=== PATIENT | female | born 1990 | race Caucasian/White ===

== ENCOUNTER → 2021-06-24 12:48 | Outpatient (CLI) | payer OTHER, SELFPAY ==
--- NOTE | 2021-06-24 13:10 | US_ITS ---
STUDY: FIRST TRIMESTER OBSTETRICAL ULTRASOUND REASON FOR EXAM: Female, 30 years old. TECHNIQUE: Transvaginal US was obtained to better visualized the ovaries. TECHNICAL QUALITY: Adequate. PRIOR ULTRASOUND: None. FINDINGS: There is visualization of a single gestational sac in a normal intrauterine position. The mean sac diameter (MSD) measures 33 mm, indicating an estimated gestational age (EGA) of 8 weeks, 3 days. The gestational sac shape is within normal limits. There is a visualized yolk sac. The yolk sac measures 4 mm. The placenta is non-visualized. Due to early gestation, the placenta is not seen. There is visualization of a live embryo. The crown-rump length (CRL) measures 19 mm, indicating an estimated gestational age (EGA) of 8 weeks, 2 days. There is demonstrated cardiac activity with a heart rate of 174 bpm. The estimated gestation age (EGA) by LMP is 8 weeks, 4 days. The estimated date of delivery (DIOGENES) by LMP is 7.15.22. The estimated gestation age (EGA) by US is 8 weeks, 2 days. The estimated date of delivery (DIOGENES) by US is 7.17.22. The uterus measures 8.7 x 7.3 cm. There is no demonstrated uterine fibroid. The cervix is closed. There are Nabothian cysts of the cervix. The right ovary measures 4.2 x 2.8 cm. Cyst measures 21 mm. There is no visualized right adnexal mass or complex lesion. The left ovary measures 3.2 x 2.6 cm. There is no left ovarian cyst. There is no visualized left adnexal mass or complex lesion. There is minimal fluid in the cul de sac. US/Transvaginal w/Preg US IMPRESSION: There is a single live intrauterine with a heart rate of 174 bpm. The estimated gestation age (EGA) by US is 8 weeks, 2 days. The estimated date of delivery (DIOGENES) by US is 7.17.22. There is free fluid in the pelvis. This can be physiologic. Electronically Signed: Asad Garcia MD at 15:52 EST , Service support ,
== END ==
PROVIDERS: Referring Provider Nurse Practitioner Women's Health; Visit Provider Nurse Practitioner Women's Health
DX: Z34.90 Encounter for supervision of normal pregnancy, unspecified, unspecified trimester (principal)
CPT/HCPCS: 36415; 76817; 84702; 86850; 86900; 86901

== ENCOUNTER → 2021-06-30 | Outpatient (CLI) | payer OTHER, SELFPAY ==
[2021-06-30 17:38] LABS: Amphetamine Urine VISTA NEGATIVE (<1000 ng/mL); Barbiturate Urine VISTA NEGATIVE (< 200 ng/mL); Benzodiazepine Urine VISTA NEGATIVE (< 200 ng/mL); Cocaine Urine VISTA NEGATIVE (< 300 ng/mL); Ecstacy Urine VISTA NEGATIVE (< 500 ng/mL); Methadone Urine VISTA NEGATIVE (< 300 ng/mL); PCP Urine VISTA NEGATIVE (< 25 ng/mL); THC Urine VISTA NEGATIVE (< 50 ng/mL); Vista UDS pH Range 5
[2021-07-03 00:06] LABS: Chlamydia By Nucleic Acid AMP Negative (Negative)
[2021-07-03 07:28] LABS: Gonococcus By Nucleic Acid AMP Negative (Negative)
[2021-07-07 14:20] LABS: HPV Reflexed? NOT INDICATED
== END | disposition home or self-care (01) ==
LOC: LABSPEC 16:25
PROVIDERS: Referring Provider Obstetrics & Gynecology; Visit Provider Obstetrics & Gynecology
DX: Z34.90 Encounter for supervision of normal pregnancy, unspecified, unspecified trimester (principal)
CPT/HCPCS: 80307; 87086; 87088; 87491; 87591; 88175; G0145

== ENCOUNTER → 2021-07-17 10:55 | Outpatient (CLI) | payer OTHER, SELFPAY ==
[2021-07-17 11:43] LABS: Absolute Lymphocyte Count 1.75 X10^3/uL (0.83-4.51); Absolute Neutrophil Count 6.1 X10^3/uL (2.0-7.7); Basophil# 0.02 X10^3/uL; Basophil% 0.2 % (0-1); Eosinophils% 1.2 % (0-5); Hematocrit 40.9 % (37-47); Hemoglobin 13.1 g/dL (12.0-15.0); Lymphocyte # 1.75 X10^3/ul (0.83-4.51); Mean Corpuscular Hgb 28.2 pg (27.0-32.0); Mean Platelet Vol. 9.6 fl (6.2-12.0); Monocyte# 0.32 X10^3/uL; Monocyte% 3.8 % (0-10); NRBC Flagged by Analyzer 0 % (0-5); Neutrophil # 6.11 X10^3/uL (2.7-7.7); Neutrophil % 73.2 % (47-70); Platelet Count 264 K/mm3 (150-450); RBC Distribution Width SD 38.3 fl (35.1-43.9); Red Blood Count 4.65 M/mm3 (4.2-5.4); White Blood Count 8.4 K/mm3 (4.4-11.0)
[2021-07-17 12:02] LABS: NATERA MAILED SPECIMEN
[2021-07-17 12:15] LABS: Glucose Challenge Gest 1H 50g 97 mg/dL (70-140)
[2021-07-17 13:12] LABS: HIV - WCH Non-Reactive (Nonreactive); Hepatitis B Surface Antigen Non-Reactive (Nonreactive); Hepatitis C Antibody Non-Reactive (Nonreactive); Rubella IgG Reactive (Nonreactive); Syphilis Antibodies Non-reactive
== END ==
PROVIDERS: Referring Provider Obstetrics & Gynecology; Visit Provider Obstetrics & Gynecology
DX: Z34.81 Encounter for supervision of other normal pregnancy, first trimester (principal)
CPT/HCPCS: 36415; 82950; 85025; 86703; 86762; 86780; 86803; 86850; 86900; 86901; 87340

== ENCOUNTER 2021-09-30 08:27 | Outpatient (CLI) | payer OTHER, SELFPAY ==
[2021-09-30 08:45] VITALS: BP 121/72; PULSE 107; RESP 16; TEMP 36.1; O2SAT 100
[2021-09-30] MEDS: Ondansetron 4 MG/2 ML Vial IV (08:51)
[2021-09-30] MEDS: 0.9% NaCl Peripheral Flush Adult/Peds IV ×2 (08:51→08:55)
[2021-09-30] MEDS: Dextrose 5%-Lactated Ringers 1,000 ML 999 ML IV (08:54)
[2021-09-30 10:16] VITALS: BP 119/64; PULSE 114; RESP 16; O2SAT 100
== END 2021-09-30 23:59 | disposition home or self-care (01) ==
PROVIDERS: Referring Provider Obstetrics & Gynecology; Visit Provider Obstetrics & Gynecology
DX: E86.0 Dehydration (principal)
CPT/HCPCS: 96374; 96361; A4216; J2405

== ENCOUNTER 2021-10-15 20:00 | Outpatient (CLI) | payer OTHER, SELFPAY ==
[2021-10-15 20:10] VITALS: BMI 35.2
[2021-10-15 20:21] VITALS: PULSE 89; O2SAT 98
[2021-10-15 20:23] VITALS: BP 121/60; PULSE 86
--- NOTE | 2021-10-15 20:44 | US_ITS ---
INDICATION: right sided flank pain EXAMINATION: Ultrasound US Kidney(s) complete (eg, kidneys and bladder) TECHNIQUE: Simmons scale and color doppler images were obtained of the kidneys. COMPARISON: None. FINDINGS: RIGHT KIDNEY: 10.4 cm in length. There is no hydronephrosis. No shadowing calculus, focal lesion or perinephric collection is demonstrated. LEFT KIDNEY: 12.0 cm in length. There is no hydronephrosis. No shadowing calculus, focal lesion or perinephric collection is demonstrated. Area measured in the right kidney highly suggestive of a prominent column of SANJIV; benign finding. URINARY BLADDER: Normal. US/Kidney and Bladder IMPRESSION: Normal exam. Electronically Signed: Kervin Talley DO at 0:03 EDT ,
--- NOTE | 2021-10-15 20:51 | OB.TRI.HP_ITS ---
HPI - General HPI Narrative * PAPA BRICENO, is a 31 @ 24 weeks 5 days who presents with persistent right flank pain. She was worked up by her pcp for possible UTI, however the final culture returned negative today. She points to her lower right flank and states that she has some pain with inhalation and also with laying on her right side. She denies seeing raghu blood in urine. She denies radiation to her right lower side. She denies history of kidney stones. She denies fevers, chills, nausea, vomiting, or diarrhea. No cough or SOB Maternal Data Information DIOGENES Calculator Estimated Delivery Date Method Current WG Current Estimate 01/30/22 LMP (Certain) 24w 5d PFSH PFSH Medical History Anxiety and depression COVID-19 affecting in first trimester COVID-19 vaccine series completed H/O abnormal cervical Papanicolaou smear Hx LEEP (loop electrosurgical excision procedure), cervix, Home Medications promethazine 12.5 mg tablet 12.5 mg PO Q6H PRN #60 tab 06/02/21 [Rx Last Taken Unknown] fluoxetine 10 mg capsule 10 mg PO DAILY 06/18/21 [History Last Taken Unknown] multivitamin no.47-iron fum 27 mg-folate no.1 1 mg-dha 300 mg capsule cap PO 06/18/21 [History Last Taken Unknown] omeprazole 20 mg capsule,delayed release 20 mg PO DAILY 30 Days #30 cap 09/03/21 [Rx Last Taken Unknown] Allergy/AdvReac Type Severity Reaction Status Date / Time No Known Allergies Allergy Verified 09/30/21 08:06 Family History Mother Breast cancer Father Cancer Melanoma Surgical History H/O knee surgery Social History household members: spouse housing: house current occupational status: employed current occupation: [employer] in [place], [place] pets and animals: Yes Smoking Status: Never smoker second hand exposure: Yes alcohol intake: current details: not while substance use type: does not use caffeine: Yes seatbelt use: always do you feel safe at home: Yes additional social history: - Sin (construction) History 1 Elective abortions Hx Para Spontaneous abortions Hx # Term Pregnancies Ectopic pregnancies Hx # Pregnancies Multiple births # of living children Visit Details Expected Delivery Route/Plan Labor Preferences- CB/BF classes: [] labor support person: [] labor intervention preferences: [] pain management options preferred: [] cut cord/dad catch: [] : [] PP control planned: [] discussed possible routes of delivery and associated risks: [] special requests: [] Plans Covid status: pfizer vaccine Flu vaccine: given Tdap vaccine: [] Rhogam: [] LARC form signed: [] Problem list reviewed and updated with the most current plan of care details and appropriate orders placed. Relevant counseling for the gestational age provided. Continue routine care and follow up unless otherwise noted in visit notes/problem list details OB Flowsheet Initial Weight: 215 lb Date -?-?-?-?-?-?-?-?-?-?-?-?- EGA Weight BP Urine Prot -?-?-?-?-?-?-?-?-?-?-?-?- Glucose FHR FuHt Pres Dilation -?-?-?-?-?-?-?-?-?-?-?-?- Effaced St Visit Note 06/30/21 -?-?-?-?-?-?-?-?-?-?-?-?- 9w 3d 217 lb (+2 lb) 110/80 -?-?-?-?-?-?-?-?-?-?-?-?- -?-?-?-?-?-?-?-?-?-?-?-?- SM- CRL cons wit h LMP 08/04/21 -?-?-?-?-?-?-?-?-?-?-?-?- 14w 3d 217 lb (+2 lb) 92/74 Negative -?-?-?-?-?-?-?-?-?-?-?-?- Negative 150 -?-?-?-?-?-?-?-?-?-?-?-?- SM- nausea impro ving. 09/03/21 -?-?-?-?-?-?-?-?-?-?-?-?- 18w 5d 219 lb 8 oz (+4 lb 8 oz) 130/80 Negative -?-?-?-?-?-?-?-?-?-?-?-?- Negative 147 -?-?-?-?-?-?-?-?-?-?-?-?- JV- no lof, vagi nal bleeding or cramping. she has moderate to severe indigestion. starting omeprazole. informed of category c medication. 09/30/21 -?-?-?-?-?-?-?-?-?-?-?-?- 22w 4d 216 lb (+16 oz) 120/82 Trace -?-?-?-?-?-?-?-?-?-?-?-?- Negative 153 -?-?-?-?-?-?-?-?-?-?-?-?- JV- pt states th at she has been vomiting x 24 hrs and has diarrhea. 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 she has 3+ ketones in urine. sending to infusion suite for fluids. 10/15/21 -?-?-?-?-?-?-?-?-?-?-?-?- 24w 5d 121/60 -?-?-?-?-?-?-?-?-?-?-?-?- -?-?-?-?-?-?-?-?-?-?-?-?- ROS Constitutional Constitutional: Reports systems reviewed and no addt'l complaints, except as documented Gastrointestinal Gastrointestinal: Denies bloating, constipation, cramping, diarrhea, nausea or vomiting Genitourinary Genitourinary: Reports other Details: Denies vaginal odor, vaginal bleeding, or vaginal discharge ; Denies difficulty urinating or flank pain Physical Exam HEENT normocephalic Resp normal respiratory effort and normal air movement Amniotic Fluid: other SEE HPI Extremity normal to inspection General Extremity: edema bilateral (trace ) NST FHR Rate Baby A Baseline: 140- not a candidate for NST Uterine Activity:: no contractions Assessment & Plan (1) COVID-19 affecting in first trimester: COMMENT: positive on 07/23/2021, moved appt. advised to start baby asa and growth u/s at 28w,32w,36w (2) H/O abnormal cervical Papanicolaou smear: COMMENT: LEEP done (3) Supervision of high risk , antepartum: COMMENT: PRR DIOGENES: 01/30/22 carleen Salvador Spouse: Sin (Gabe age 5) (4) : QUALIFIERS: Weeks of gestation: 22 weeks Qualified Code(s): Z3A.22 - 22 weeks gestation of COMMENT: anatomy nl, discussed carrier, NIPT low risk (5) Hx LEEP (loop electrosurgical excision procedure), cervix, : COMMENT: check serial CL (6) Anxiety and depression: COMMENT: currently on Prozac, counseling encouraged (7) Flank pain in patient: COMMENT: triage 10/15/21 PLAN: plan to order renal ultrasound, hydrate, lay on left side, and flexeril 10 mg. pt states tylenol does not work for her. Charges/Coding Multi Select Codes Visit Charges Office Visit/Consults: 72433 OV L3 Est Urinary/Genital Urinary/Genital CPT Codes: 21948-08 non-stress test Interp
[2021-10-15 21:09] LABS: Color, Urine Yellow (Yellow); Glucose, Dipstick Normal (Normal); Ketone-Dipstick 5 mg/dl (Negative); Leukocyte Esterase-Dipstick 25 /ul (Negative); Nitrite-Dipstick Negative (Negative); Occult Blood-Urine Negative /ul (Negative); Protein-Dipstick Negative (Negative); Specific Gravity, Urine 1.015 (1.002-1.030); Urine Bilirubin Dipstick Negative (Negative); Urine Clarity Clear (Clear); Urine Urobilinogen Normal (Normal); Urine pH 6.5 (5.0 - 8.0)
[2021-10-15] MEDS: cycloBENZAPRine HCl 10 MG Tablet PO (21:18)
== END 2021-10-15 23:59 | disposition home or self-care (01) ==
LOC: WPOUT 20:05 → WP 20:05
PROVIDERS: Visit Provider Obstetrics & Gynecology
DX: O26.892 Other specified pregnancy related conditions, second trimester (principal); R10.9 Unspecified abdominal pain; O99.342 Other mental disorders complicating pregnancy, second trimester; F32.A Depression, unspecified; F41.9 Anxiety disorder, unspecified; Z79.899 Other long term (current) drug therapy; Z3A.22 22 weeks gestation of pregnancy; Z86.16 Personal history of COVID-19
CPT/HCPCS: 59025; 59050; 76770; 81002; 99218; G0378

== ENCOUNTER → 2021-11-06 | Outpatient (CLI) | payer OTHER, SELFPAY ==
[2021-11-06 09:03] LABS: Absolute Lymphocyte Count 1.52 X10^3/uL (0.83-4.51); Absolute Neutrophil Count 9.8 X10^3/uL (2.0-7.7); Basophil# 0.02 X10^3/uL; Basophil% 0.2 % (0-1); Eosinophil# 0.09 X10^3/uL; Eosinophils% 0.7 % (0-5); Hematocrit 34.4 % (37-47); Lymphocyte # 1.52 X10^3/ul (0.83-4.51); Lymphocyte % 12.4 % (19-41); Mean Corpuscular Hgb 27.5 pg (27.0-32.0); Mean Platelet Vol. 9.3 fl (6.2-12.0); Monocyte% 5.7 % (0-10); NRBC Flagged by Analyzer 0 % (0-5); Neutrophil # 9.84 X10^3/uL (2.7-7.7); Neutrophil % 80.3 % (47-70); Platelet Count 325 K/mm3 (150-450); RBC Distribution Width CV 13.2 % (11.6-14.6); RBC Distribution Width SD 40.8 fl (35.1-43.9); White Blood Count 12.3 K/mm3 (4.4-11.0)
[2021-11-06 09:25] LABS: Glucose Challenge Gest 1H 50g 102 mg/dL (70-140)
== END | disposition home or self-care (01) ==
PROVIDERS: Obstetrics & Gynecology; Referring Provider Obstetrics & Gynecology; Visit Provider Obstetrics & Gynecology
DX: O09.90 Supervision of high risk pregnancy, unspecified, unspecified trimester (principal)
CPT/HCPCS: 36415; 82950; 85025

== ENCOUNTER → 2022-01-08 | Outpatient (CLI) | payer OTHER, SELFPAY | END | disposition home or self-care (01) | PROVIDERS: Visit Provider Obstetrics & Gynecology | DX: Z34.90 Encounter for supervision of normal pregnancy, unspecified, unspecified trimester (principal) | CPT/HCPCS: 87081 ==

== ENCOUNTER 2022-01-15 12:50 | Inpatient (IN) | payer OTHER, SELFPAY ==
[2022-01-15] VITALS (16 sets, daily range): BP systolic 40–129; BP diastolic 25–80; PULSE 83–110; RESP 16–18; TEMP 36.2–36.8; O2SAT 97–100; BMI 36.9
--- NOTE | 2022-01-15 13:07 | HP.PCM_ITS ---
History and Physical Date of Admission: 01/15/22 Date of Service:? 01/15/22 Intake Vital Signs ? 10/01/2207:45 01/16/2208:23 01/16/2208:24 Height 5 ft 6 in 5 ft 6 in 5 ft 6 in Weight: ? 230 lb ? BMI ? 37.1 ? BP ? 126/82 H ? Intake Visit Reasons:?38WK OB Chief Complaint: est ob Termite Helper Required: No Is patient in pain?: No Allergies No Known Allergies Allergy (Verified 01/01/22 09:37) Medications fluoxetine 10 mg capsule (Prozac) 10 mg PO DAILY 06/18/21 [History Confirmed 01/15/22] multivitamin no.47-iron fum 27 mg-folate no.1? 1 mg-dha 300 mg capsule (PNV-DHA) 1 cap PO DAILY 06/18/21 [History Confirmed 01/15/22] omeprazole 20 mg capsule,delayed release 20 mg PO DAILY 30 days #30 caps 09/03/21 [Rx Confirmed 01/15/22] Last Menstral Period: 04/25/21 Zika: Zika virus screening: Negative : No PFSH PFSH Medical History? Anxiety and depression COVID-19 affecting in first trimester COVID-19 vaccine series completed H/O abnormal cervical Papanicolaou smear Hx LEEP (loop electrosurgical excision procedure), cervix, Surgical History? H/O knee surgery Family History? Mother Breast cancerFather Cancer ?? ? Melanoma Social History? household members:? spouse housing:? house current occupational status:? employed current occupation:? [employer] in [place], [place] pets and animals:? Yes Smoking Status:? Never smoker second hand exposure:? Yes alcohol intake:? current details:? not while substance use type:? does not use caffeine:? Yes seatbelt use:? always do you feel safe at home:? 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 ? ? 1 ? Elective abortions ? Hx Para ? Spontaneous abortions ? Hx # Term Pregnancies ? Ectopic pregnancies ? Hx # Pregnancies ? Multiple births ? # of living children ? HPI 38WK OB Details: PAPA BARRETO is a 31 year old who presents for routine OB visit. OB Visit DIOGENES Calculator ? Estimated Delivery Date Method Current WG Current Estimate 01/30/22 LMP (Certain) 37w 6d Expected Delivery Route/Plan LTCS due to breech Labor Preferences- CB/BF classes: enc labor support person: Sin labor intervention preferences: [] pain management options preferred: epidural cut cord/dad catch: cord : yes PP control planned: progesterone only OCP discussed possible routes of delivery and associated risks: [] special requests: [] Specific Issue/Plans Covid status: pfizer vaccine Flu vaccine: given Tdap vaccine: given Rhogam: na LARC form signed: yes Problem list reviewed and updated with the most current plan of care details and appropriate orders placed.? Relevant counseling for the gestational age provided. Continue routine care and follow up unless otherwise noted in visit notes/problem list details Initial Weight:?215 lb Date -?-?-?-?-?-?-?-?-?-?-?-?- EGA Weight BP Urine Prot -?-?-?-?-?-?-?-?-?-?-?-?- Glucose FHR FuHt Pres Dilation -?-?-?-?-?-?-?-?-?-?-?-?- Effaced St Visit Note 06/30/21-?-?-?-?-?-?-?-?-?-?-?-?- 9w 3d 217 lb(+2 lb) 110/80 -?-?-?-?-?-?-?-?-?-?-?-?- ? -?-?-?-?-?-?-?-?-?-?-?-?- ? ? SM- CRL cons with LMP 08/04/21-?-?-?-?-?-?-?-?-?-?-?-?- 14w 3d 217 lb(+2 lb) 92/74 Negative -?-?-?-?-?-?-?-?-?-?-?-?- Negative 150 ? ? -?-?-?-?-?-?-?-?-?-?-?-?- ? ? SM- nausea improving. 09/03/21-?-?-?-?-?-?-?-?-?-?-?-?- 18w 5d 219 lb 8 oz(+4 lb 8 oz) 130/80 Negative -?-?-?-?-?-?-?-?-?-?-?-?- Negative 147 ? ? -?-?-?-?-?-?-?-?-?-?-?-?- ? ? JV- no lof, vaginal bleeding or cramping. she has moderate to severe indigestion. starting omeprazole. informed of category c medication. 09/30/21-?-?-?-?-?-?-?-?-?-?-?-?- 22w 4d 216 lb(+16 oz) 120/82 Trace -?-?-?-?-?-?-?-?-?-?-?-?- Negative 153 ? ? -?-?-?-?-?-?-?-?-?-?-?-?- ? ? JV- pt states that she has been vomiting x 24 hrs and has diarrhea. 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 she has 3+ ketones in urine. sending to infusion suite for fluids. 10/15/21-?-?-?-?-?-?-?-?-?-?-?-?- 24w 5d 218 lb 9.6 oz(+3 lb 9.6 oz) 121/60 Negat yo mg/dl (Negative) -?-?-?-?-?-?-?-?-?-?-?-?- ? -?-?-?-?-?-?-?-?-?-?-?-?- ? ? ? 11/06/21-?-?-?-?-?-?-?-?-?-?-?-?- 27w 6d 226 lb 2 oz(+11 lb 2 oz) 102/72 -?-?-?-?-?-?-?-?-?-?-?-?- ? 145 27 ? -?-?-?-?-?-?-?-?-?-?-?-?- ? ? JV- normal gct. rpt scan with mfm was done this am and report is pending. 11/20/21-?-?-?-?-?-?-?-?-?-?-?-?- 29w 6d 227 lb(+12 lb) 126/84 Negative -?-?-?-?-?-?-?-?-?-?-?-?- Negative 141 31 ? -?-?-?-?-?-?-?-?-?-?-?-?- ? ? JV- no lof ,vaginal bleeding, or dec fm. last scan was normal. has follow up next visit. 12/04/21-?-?-?-?-?-?-?-?-?-?-?-?- 31w 6d 226 lb(+11 lb) 112/78 Negative -?-?-?--?-?-?-?-?-?-?-?-?- Negative 146 33 ? -?-?-?-?-?-?-?-?-?-?-?-?- ? ? JV- growth scan was done today and results pending. LARC form signed. 12/17/21-?-?-?-?-?-?-?-?-?-?-?-?- 33w 5d 225 lb 8 oz(+10 lb 8 oz) 126/70 Trace -?-?-?-?-?-?-?-?-?-?-?-?- Negative 145 34 ? -?-?-?-?-?-?-?-?-?-?-?-?- ? ? MH-No VB, LOF. Good FM. Recent nl growth US with another sched 01/01. 01/01/22-?-?-?-?-?-?-?-?-?-?-?-?- 35w 6d 226 lb 4 oz(+11 lb 4 oz) 122/84 Negative -?-?-?-?-?-?-?-?-?-?-?-?- Negative 138 38 Breech -?-?-?-?-?-?-?-?-?-?-?-?- ? ? JV- weight is 7lbs 9oz, declines version and prefers to schedule 39 weeks section. 01/08/22-?-?-?-?-?-?-?-?-?-?-?-?- 36w 6d 228 lb(+13 lb) 126/80 Negative -?-?-?-?-?-?-?-?-?-?-?-?- Negative 135 39 Breech 1.5-?-?-?-?-?-?-?-?- ?-?-?-?- 70 -2 SM- no vb lof good fm no regular ctx plan LTCS 01/15/22-?-?-?-?-?-?-?-?-?-?-?-?- 37w 6d 230 lb(+15 lb) 126/82 Negative -?-?-?-?-?-?-?-?-?-?-?-?- Negative 130 38 Breech 1.5-?-?-?-?-?-?-?-?- ?-?-?-?- 80 -2 SM- no vb lof good fm no regular ctx ACOG First Trimester First Trimester: Desire for , Alcohol, Tobacco Cessation, Illicit/Recreational Drug/Substance Use, Intimate Partner Violence, Barriers to care, Unstable Housing, Communication Barriers, Environmental/Work Hazards, Anticipated Course of Care, Toxoplasmosis Precautions, Use of Any medications, Sexual activity, Exercise, Dental Care, Sauna/Hot tub use, Seat Belt use, Childbirth classes/Hospital facilities, , Travel, Indications for Ultrasound and Screening for Aneuploidy Second Trimester Second Trimester: Signs and Symptoms of Labor, Selecting a care provider, Reproductive Life Planning & Contraception, Care Planning, Depression/Anxiety and Intimate Partner Violence; Discussed Tobacco Cessation Third Trimester Third Trimester: Pain Management Plans, Labor support person(s), Immediate Larc, Circumcision preference, Signs and Symptoms of Preeclampsia, Infant Feeding Yes and Family Medical Leave or Disability Forms Diagnostics Diagnostics Diagnostics: ?? ? Glucose 1 Hr 50 gm 102 mg/dL (70-140) ?? ? Hgb 11.0 g/dL (12.0-15.0)? L ?? ? Hct 34.4 % (37-47)? L Details: HIV: Urine Culture: Sequential Screen: NIPT Screen: ROS Const Reports system reviewed and no additional complaints, except as documented Card Reports system reviewed and no additional complaints, except as documented Resp Reports system reviewed and no additional complaints, except as documented GI Reports system reviewed and no additional complaints, except as documented and Reports nausea Reports system reviewed and no additional complaints, except as documented Musc Reports system reviewed and no additional complaints, except as documented Exam Const General: cooperative, healthy appearing, comfortable and anxious HENMT Head: normal to inspection Nose: external nose normal Face and sinus: normal facial exam Neck Neck: normal visual inspection, full ROM and no lymphadenopathy Thyroid: thyroid normal Chest Chest palpation & inspection: normal inspection of the chest Resp Effort & Inspection: normal respiratory effort GI Inspection: normal to inspection Palpation: soft and other (gravid uterus) Other: vertex and appropriate size for gestational age Other: Cervical Exam: Extrem General: pedal edema Results POC Urinalysis 2 Dip? (Clinic) Office Urine Glucose Negative ? ? Last Edit by Sangeeta Ramírez on 01/15/22 08:26 Office Urine Protein Negative ? ? Last Edit by Sangeeta Ramírez on 01/15/22 08:26 Coding Diagnoses Breech presentation? O32.1XX0 Flank pain in patient? O26.899; R10.9 COVID-19 affecting in first trimester? O98.511; U07.1 H/O abnormal cervical Papanicolaou smear? Z87.42 Supervision of high risk , antepartum? O09.90 ? Z3A.37 ? ? ? Weeks of gestation: 37 weeks Hx LEEP (loop electrosurgical excision procedure), cervix, ? O34.43; Z98.890 ? ? ? Trimester: third trimester Anxiety and depression? F41.9; F32.A Assessment and Plan Assessment and Plan (1) Breech presentation: ?Status:?Acute ?Comment: breech at 36 weeks, declines version, LGA. primary csection 01/23 @ 12 (2) Flank pain in patient: ?Status:?Acute ?Comment: triage 10/15/21 (3) COVID-19 affecting in first trimester: ?Status:?Acute ?Comment: positive on 07/23/2021, moved appt. advised to start baby asa and growth u/s at 28w,32w,36w, 28 wk nl, 32 week US NL, 36 nl (4) H/O abnormal cervical Papanicolaou smear: ?Status:?Acute ?Comment: LEEP done (5) Supervision of high risk , antepartum: ?Status:?Acute ?Comment: PRR DIOGENES: 01/30/22 carleen Salvador Spouse: Sin (Gabe age 5) (6) : ?Status:?Acute ?Qualifiers: ?Weeks of gestation:?37 weeks? Qualified Code(s):?Z3A.37 - 37 weeks gestation of ?Comment: anatomy nl, discussed carrier, NIPT low risk. GBS neg (7) Hx LEEP (loop electrosurgical excision procedure), cervix, : ?Status:?Acute ?Qualifiers: ?Trimester:?third trimester? Qualified Code(s):?O34.43 - Maternal care for other abnormalities of cervix, third trimester; Z98.890 - Other specified postprocedural states ?Comment: check serial CL (8) Anxiety and depression: ?Status:?Acute ?Comment: currently on Prozac, counseling encouraged ? ? ? Orders: Orders POC Urinalysis 2 Dip? (Clinic) Today ? ? OB Limited (No Biometrics) Today O26.849 - Uterine size-date discrepancy, unspecified trimester ? UPDATE- I have seen the patient and performed any clinically relevant updates to the history and physical exam. Lidia Wells, DO plan for primary section today for breech and oligohydramnios at 37 weeks 6 days
[2022-01-15] MEDS: Lactated Ringers 1,000 ML 999 ML IV (13:15)
[2022-01-15] MEDS: Acetaminophen 500 MG Tablet 1000 MG PO ×2 (13:38→19:41)
[2022-01-15 14:02] LABS: Absolute Neutrophil Count 7.6 X10^3/uL (2.0-7.7); Basophil# 0.01 X10^3/uL; Basophil% 0.1 % (0-1); Eosinophil# 0.05 X10^3/uL; Eosinophils% 0.5 % (0-5); Hematocrit 35.3 % (37-47); Lymphocyte % 13.8 % (19-41); Mean Corp Hgb Conc 31.2 g/dL (32-36); Mean Corpuscular Hgb 25.3 pg (27.0-32.0); Mean Corpuscular Volume 81.3 fL (81-99); Mean Platelet Vol. 10.2 fl (6.2-12.0); Monocyte% 4.2 % (0-10); NRBC Flagged by Analyzer 0 % (0-5); Neutrophil # 7.63 X10^3/uL (2.7-7.7); Neutrophil % 80.9 % (47-70); Platelet Count 307 K/mm3 (150-450); RBC Distribution Width CV 14.1 % (11.6-14.6); Red Blood Count 4.34 M/mm3 (4.2-5.4); White Blood Count 9.4 K/mm3 (4.4-11.0)
[2022-01-15] MEDS: Lactated Ringers 1,000 ML 150 ML IV (14:16)
[2022-01-15] MEDS: Sodium Citrate/Citric Acid 30 ML UDC PO (16:25)
[2022-01-15] MEDS: Cefazolin 2 GM in 0.9% Normal Saline 100 ML IV (16:35)
--- NOTE | 2022-01-15 16:45 | DCINST_ITS ---
Discharge Instructions Diet Discharge Diet: No restrictions Activity Discharge Activity: May Not Drive (for 2 weeks or while taking narcotic pain medications.), May Shower and May Take a Tub Bath (in 7 days.) May resume sexual activity in: 4-6 weeks Weight Bearing Status: Full weight bearing Lifting Restrictions: 20 pounds Dressing / Incision Call your doctor if your incision/area has: Continuous Slow Oozing, Sudden Increased Bleeding, Increased Pain/ Swelling, Increased Redness and Foul Smelling Discharge Call your doctor if you observe: Fever of 101 or Higher and Using more than 1 pad per hour Suture Line Care: Avoid Pulling/Pushing and Avoid Pinching/Bending Cleanse incision/area with: Soap & Water and Keep Dressing Clean & Dry Follow Up Care Please Follow Up With: Lidia Wells DO When: Call [phone] to make an appointment for an incision check in 1-2 weeks. Test Results: Test results from this visit will be discussed in further detail at your follow- up appointment, if applicable. Discharge Plan Admission Admit Date/Time: 01/15/22 12:50 Primary Reason for Your Visit: section Attending Provider: Lidia Wells Primary Care Provider: Jet PhysicianAndie Primary Discharge Orders/Prescriptions Prescriptions: New ibuprofen 600 mg tablet 600 mg PO Q6H PRN (Reason: pain) 7 Days Qty: 30 0RF oxycodone-acetaminophen [Percocet] 5-325 mg tablet 1 tab PO Q4H PRN (Reason: pain) 7 Days Qty: 30 0RF Continued fluoxetine [Prozac] 10 mg capsule 10 mg PO DAILY PNV-DHA 27 mg iron-1 mg -300 mg capsule 1 cap PO DAILY omeprazole 20 mg capsule,delayed release(DR/EC) 20 mg PO DAILY Discontinued aspirin 81 mg Capsule 81 mg PO DAILY Referrals / Follow Up: Care Physician,Andie Primary [Primary Care Provider] - Disposition Disposition (needs filled in before D/C Order can be placed): Home, Self Care
--- NOTE | 2022-01-15 17:37 | OP.PCM_ITS ---
Assessment & Plan (1) Breech presentation: COMMENT: breech at 36 weeks, declines version, LGA. primary csection 01/23 @ 12 (2) COVID-19 affecting in first trimester: COMMENT: positive on 07/23/2021, moved appt. advised to start baby asa and growth u/s at 28w,32w,36w, 28 wk nl, 32 week US NL, 36 nl (3) Supervision of high risk , antepartum: COMMENT: PRR DIOGENES: 01/30/22 carleen Salvador Spouse: Sin (Gabe age 5) (4) : QUALIFIERS: Weeks of gestation: 37 weeks Qualified Code(s): Z3A.37 - 37 weeks gestation of COMMENT: anatomy nl, discussed carrier, NIPT low risk. GBS neg (5) Hx LEEP (loop electrosurgical excision procedure), cervix, : QUALIFIERS: Trimester: third trimester Qualified Code(s): O34.43 - Maternal care for other abnormalities of cervix, third trimester; Z98.890 - Other specified postprocedural states COMMENT: check serial CL Maternal Data Information DIOGENES Calculator Estimated Delivery Date Method Current WG Current Estimate 01/30/22 LMP (Certain) 37w 6d Final DIOGENES: 01/30/22 Final DIOGENES Source: US <20 weeks Gestational age: 37 weeks 6 days Details Operative Information Date of Procedure: 01/15/22 Pre-Operative Diagnosis: @ 37 weeks 6 days, breech presentation, oligohydramnios, acute COVID-19 infection Post-Operative Diagnosis: @ 37 weeks 6 days, breech presentation, oligohydramnios, acute COVID-19 infection Indications for : Breech Classification: Scheduled Procedure Type: low transverse Type of Anesthesia: Spinal Antibiotic Given: Ancef 2 grams IV x1 Estimated Blood Loss: 500cc Findings Description of Procedure: The patient is a 31 y/o @ 37 weeks 6 days presented for primary due to breech presentation and oligohydramnios. Spinal anesthesia was placed without difficulty. Mott catheter was placed. The patient was placed in the dorsal supine position with leftward tilt. Patient was prepped and draped in the normal sterile fashion. Pfannenstiel skin incision was made with the scalpel and carried through to the underlying layer of fascia with the scalpel. Fascia was nicked in the midline and the incision extended laterally. The rectus bellies were dissected off superiorly and inferiorly with out complication both sharply and bluntly. The peritoneum was entered digitally. The incision was stretched and a low transverse uterine incision was made with the scalpel. The 's buttocks was identified and delivered throught the incision followed by delivery of the body and then the anterior shoulder. The baby was rotated to the left and the posterior shoulder was delivered followed by delivery of the head. The cord was clamped and cut and the infant was handed off to awaiting nurse. The placenta was delivered spontaneously immediately following and was noted to be intact and have a three-vessel cord. The uterus was exteriorized cleared of all clots and debris, and the incision was closed in a double layer closure using #1 Monocryl. The right ovary and fallopian tubes were noted to be within normal limits. The left ovary was noted to be very small (less than 2 cm in size) and a normal fallopian tube. The uterus was returned to the maternal abdomen and gutters were cleared of all clots and debris. The peritoneum was closed with 3-0 Monocryl in a running fashion. Gloves were tejas nged prior to fascial closure. Fascia was closed with 0 PDS in a running fashion. Subcutaneous tissue was copiously irrigated and the skin was closed with 3-0 Monocryl in a subcuticular fashion. Mepilex dressing was applied without complication. Patient was taken to recovery in stable condition. It was discussed with the patient that based on the clinical information obtained during this encounter, combined with her history, at this time I would recommend either or repeat section for future deliveries if further pregnancies are desired. Presentation: Positive for Garrett Breech Amniotic Membrane Rupture Type: Artificial Amniotic Fluid Description: Clear Placental Delivery Description: Manual Removal Placenta Disposition: [facility] Cord Vessel Description: 3 Vessels Cord Entanglement: None Infant A Gender: Male (1 minute): 9 (5 minute): 9 Delayed Cord Clamping: Yes Complications Risks of Surgery Discussed w/Patient: Bleeding, Anesthesia Risks, Infection, Need for Future C-Sections and Injury to surrounding structure(s) including bowel and bladder Multi Select Codes Urinary/Genital Urinary/Genital CPT Codes: 55178 Delivery [facility]
[2022-01-15] MEDS: Oxytocin 30 units/NS 500 ml 30 UNITS/500 ML IV.SOLN 167 UNITS IV (18:59)
[2022-01-15] MEDS: Ketorolac 30 MG/ML Syringe IV (18:59)
[2022-01-15] MEDS: Lactated Ringers 1,000 ML 100 ML IV (23:17)
[2022-01-16] VITALS (7 sets, daily range): BP systolic 108–138; BP diastolic 51–71; PULSE 74–103; RESP 14–18; TEMP 36.3–36.6; O2SAT 97–98
[2022-01-16] MEDS: Ketorolac 30 MG/ML Syringe IV ×3 (01:03→11:34)
[2022-01-16] MEDS: Acetaminophen 500 MG Tablet 1000 MG PO ×4 (01:04→21:08)
--- NOTE | 2022-01-16 06:09 | CPS ---
RN to go over I.S. with patient
[2022-01-16 06:53] LABS: Hematocrit 29.5 % (37-47); Hemoglobin 9.2 g/dL (12.0-15.0); Mean Corp Hgb Conc 31.2 g/dL (32-36); Mean Corpuscular Hgb 25.6 pg (27.0-32.0); Mean Corpuscular Volume 81.9 fL (81-99); Mean Platelet Vol. 10.2 fl (6.2-12.0); Platelet Count 263 K/mm3 (150-450); RBC Distribution Width SD 41.4 fl (35.1-43.9); White Blood Count 15.5 K/mm3 (4.4-11.0)
--- NOTE | 2022-01-16 08:38 | PCM.PN.OB ---
Subjective Subjective Patient is laying in bed comfortably without complaints. She states that she slept on an off during the night. Lochia is mild and pain is minimal. She denies cough or fever. no COVID symptoms Objective Data Objective Data Vital Signs: Vital Signs Temp Pulse Resp BP Pulse Ox O2 Del Method 97.6 F L 80 16 109/58 L 97 Room Air 01/16/22 04:00 01/16/22 04:00 01/16/22 04:00 01/16/22 04:00 01/16/22 04:00 01/16/22 04:00 Oxygen Delivery Method Room Air Weight: 229 lb Body Mass Index (BMI) 36.9 Intake & Output: Intake and Output for Last 24 Hours 01/14/22 01/15/22 01/16/22 23:59 23:59 23:59 Intake Total 1310 / 1310 Output Total 700 / 700 500 / 500 Balance 610 / 610 -500 / -500 Lab / Micro Data Result Diagrams: 01/16/22 06:00 Labs: Laboratory Results - last 24 hr 01/15/22 13:15: WBC 9.4, RBC 4.34, Hgb 11.0 L, Hct 35.3 L, MCV 81.3, MCH 25.3 L, MCHC 31.2 L, RDW Std Deviation 41.0, RDW Coeff of Leila 14.1, Plt Count 307, MPV 10.2, Immature Gran % (Auto) 0.500, Neut % (Auto) 80.9 H, Lymph % (Auto) 13.8 L, [place] % (Auto) 4.2, Eos % (Auto) 0.5, Baso % (Auto) 0.1, Absolute Neuts (auto) 7.6, Absolute Lymphs (auto) 1.30, Nucleated RBC % 0 01/15/22 13:15: Blood Type O POSITIVE, Antibody Screen NEGATIVE 01/15/22 14:53: COVID-19 (JCARLOS) Detected 01/16/22 06:00: WBC 15.5 H, RBC 3.60 L, Hgb 9.2 L, Hct 29.5 L, MCV 81.9, MCH 25.6 L, MCHC 31.2 L, RDW Std Deviation 41.4, RDW Coeff of Leila 14.0, Plt Count 263, MPV 10.2 Micro: Microbiology 01/15/22 Unknown Nasal Secretion SARS-CoV-2 Antigen (Rapid) - Final SARS-CoV-2 (COVID 19) ROS Constitutional Constitutional: Reports systems reviewed and no addt'l complaints, except as documented Cardiovascular Cardiovascular: Denies chest pain, dizziness, dyspnea or irregular heart rhythm Respiratory/Chest Respiratory/Chest: Denies cough, pain on inspiration or shortness of breath at rest Gastrointestinal Gastrointestinal: Denies abdominal pain, nausea or vomiting Genitourinary Genitourinary: Denies burning urination Musculoskeletal Musculoskeletal: Denies muscle cramps, muscle spasms or muscle weakness Neurologic Neurologic: Denies confusion, dizziness, headache(s) or lack of coordination Psychiatric Psychiatric: Denies anxiety, behavioral changes or depression Physical Exam HEENT normocephalic Resp normal respiratory effort and normal air movement GI soft to palpation, non-tender and non-distended Rectal Exam: other Other Details: Incision is clean, dry, and intact no CVA tenderness Extremity normal to inspection General Extremity: edema bilateral (trace ) Assessment & Plan (1) Status post section: (2) COVID-19: PLAN: Plan s/p LTCS PPD #1 primary section- breech and oligo, actue COVID -19, asymptomatic at this time. 1. routine post care 2. breast feeding- support given 3. rh positive 4. rubella immune
[2022-01-16] MEDS: 0.9% Saline Lock 10 ML Syringe IV (11:35)
[2022-01-16] MEDS: Senna/Docusate Sodium 1 Tablet PO (11:44)
[2022-01-16] MEDS: FLUoxetine 10 MG Capsule PO (12:35)
[2022-01-16] MEDS: Omeprazole 20 MG Capsule PO (12:35)
[2022-01-16] MEDS: Ibuprofen 600 MG Tablet PO ×2 (17:49→23:49)
[2022-01-17 01:55] VITALS: BP 119/64; PULSE 80; RESP 16; TEMP 36.6
[2022-01-17] MEDS: Acetaminophen 500 MG Tablet 1000 MG PO ×2 (03:03→09:52)
[2022-01-17] MEDS: Ibuprofen 600 MG Tablet PO ×2 (05:49→13:04)
--- NOTE | 2022-01-17 08:02 | PCM.PN.OB ---
Subjective Subjective Patient doing well without complaints. Tolerating PO. Ambulating and voiding without difficulty. feeding well. Denies chest pain, shortness of breath, calf pain/swelling, fevers, chills, lightheadedness. Objective Data Objective Data Vital Signs: Vital Signs Temp Pulse Resp BP Pulse Ox O2 Del Method 97.9 F 80 16 119/64 98 Room Air 01/17/22 01:55 01/17/22 01:55 01/17/22 01:55 01/17/22 01:55 01/16/22 20:02 01/17/22 01:55 Oxygen Delivery Method Room Air Weight: 229 lb Body Mass Index (BMI) 36.9 Intake & Output: Intake and Output for Last 24 Hours 01/15/22 01/16/22 01/17/22 23:59 23:59 23:59 Intake Total 1310 / 1310 1999 / 1999 Output Total 700 / 700 1500 / 1500 Balance 610 / 610 500 / 500 Lab / Micro Data Result Diagrams: 01/16/22 06:00 Micro: Microbiology 01/15/22 Unknown Nasal Secretion SARS-CoV-2 Antigen (Rapid) - Final SARS-CoV-2 (COVID 19) ROS Constitutional Constitutional: Reports systems reviewed and no addt'l complaints, except as documented Cardiovascular Cardiovascular: Reports systems reviewed and no addt'l complaints, except as documented Respiratory/Chest Respiratory/Chest: Reports systems reviewed and no addt'l complaints, except as documented Gastrointestinal Gastrointestinal: Reports systems reviewed and no addt'l complaints, except as documented Physical Exam Const alert, oriented x3 and no apparent distress HEENT Head and Scalp: atraumatic Resp normal respiratory effort GI soft to palpation and non-tender Inspection: incision intact, healing well and drainage (none) Bimanual Exam - Vag & Uterus: uterus non-tender Uterus Palpation: uterus fundus firm (below Umbilicus) Assessment & Plan (1) Status post section: (2) COVID-19: PLAN: s/p LTCS PPD # 2 1. routine post care 2. breast feeding- support given 3. rh positive 4. rubella immune
[2022-01-17] MEDS: Omeprazole 20 MG Capsule PO (09:53)
[2022-01-17] MEDS: FLUoxetine 10 MG Capsule PO (09:53)
[2022-01-17 10:00] VITALS: BP 115/69; PULSE 94; RESP 16; TEMP 36.2; O2SAT 97
[2022-01-17] MEDS: Senna/Docusate Sodium 1 Tablet PO (13:03)
[2022-01-17 13:17] VITALS: BP 130/81; PULSE 99; RESP 16; TEMP 36.2; O2SAT 98
--- NOTE | 2022-01-21 16:04 | NURSING ---
Follow up phone call complete. Mother and baby doing well. No questions or concerns at this time. Has already had an appt with and has a weight check with us again on Wednesday.
== END 2022-01-17 13:55 | disposition home or self-care (01) | DRG 786 ==
PROVIDERS: Admitting Provider Obstetrics & Gynecology; Visit Provider Obstetrics & Gynecology
PROC: 10D00Z1 Extraction of Products of Conception, Low, Open Approach (ICD-10-PCS; CPT 59514; principal; 2022-01-15 15:45)
DX: O32.1XX0 Maternal care for breech presentation, not applicable or unspecified (principal); O41.03X0 Oligohydramnios, third trimester, not applicable or unspecified; O98.52 Other viral diseases complicating childbirth; U07.1 COVID-19; O36.63X0 Maternal care for excessive fetal growth, third trimester, not applicable or unspecified; O99.344 Other mental disorders complicating childbirth; F32.A Depression, unspecified; F41.9 Anxiety disorder, unspecified; Z79.899 Other long term (current) drug therapy; Z3A.37 37 weeks gestation of pregnancy; Z37.0 Single live birth
CPT/HCPCS: 59025; 59050; 85025; 85027; 86850; 86900; 86901; 87635; 99218; J7120; A4216; G0378; J2405; U0003; U0005

== ENCOUNTER → 2022-02-23 | Outpatient (CLI) | payer OTHER, SELFPAY ==
[2022-02-23 13:37] LABS: Absolute Neutrophil Count 4.7 X10^3/uL (2.0-7.7); Basophil# 0.03 X10^3/uL; Basophil% 0.4 % (0-1); Eosinophils% 2.7 % (0-5); Hematocrit 40.9 % (37-47); Hemoglobin 12.3 g/dL (12.0-15.0); Lymphocyte % 27.2 % (19-41); Mean Corp Hgb Conc 30.1 g/dL (32-36); Mean Corpuscular Hgb 24.8 pg (27.0-32.0); Mean Corpuscular Volume 82.6 fL (81-99); Mean Platelet Vol. 10.2 fl (6.2-12.0); Monocyte# 0.41 X10^3/uL; Monocyte% 5.6 % (0-10); NRBC Flagged by Analyzer 0 % (0-5); Neutrophil # 4.69 X10^3/uL (2.7-7.7); Neutrophil % 63.7 % (47-70); Platelet Count 312 K/mm3 (150-450); RBC Distribution Width CV 16.4 % (11.6-14.6); RBC Distribution Width SD 49.1 fl (35.1-43.9); Red Blood Count 4.95 M/mm3 (4.2-5.4); White Blood Count 7.4 K/mm3 (4.4-11.0)
[2022-02-23 14:11] LABS: T4 Free Direct 1.07 ng/dL (0.76-1.46); Thyroid Stim Hormone (TSH) 1.59 uIU/mL (0.358-3.74)
[2022-02-25 14:32] LABS: Thyroid Peroxidase AB 11 IU/mL (0-34)
== END | disposition home or self-care (01) ==
LOC: LAB 12:07
PROVIDERS: PCP Family Medicine; Referring Provider Obstetrics & Gynecology; Visit Provider Obstetrics & Gynecology
DX: Z13.29 Encounter for screening for other suspected endocrine disorder (principal)
CPT/HCPCS: 36415; 84439; 84443; 85025; 86376

== ENCOUNTER → 2022-02-27 | Outpatient (CLI) | payer OTHER, SELFPAY ==
--- NOTE | 2022-02-27 15:29 | US_ITS ---
STUDY: THYROID ULTRASOUND REASON FOR EXAM: Female, 31 years old. Probably enlarged thyroid TECHNIQUE: Ultrasound evaluation of the thyroid was performed with real-time and static singh-scale imaging. COMPARISON: None. FINDINGS: RIGHT LOBE: The right lobe of the thyroid gland measures 5.6 x 1.9 x 1.5 cm. There is a homogeneous echotexture. There are no demonstrated solid, cystic or complex lesions. LEFT LOBE: The left lobe of the thyroid gland measures 4.9 x 1.6 x 1.5 cm. There is a homogeneous echotexture. There are no demonstrated solid, cystic or complex lesions. ISTHMUS: The isthmus measures 3 mm. The regional lymph nodes are normal. US/Thyroid IMPRESSION: Mildly enlarged thyroid, no discrete lesion or hyperemia. Electronically Signed: Joseph Tomas MD at 10:25 EDT ,
== END | disposition home or self-care (01) ==
LOC: US 15:28
PROVIDERS: PCP Family Medicine; Referring Provider Obstetrics & Gynecology; Visit Provider Obstetrics & Gynecology
DX: E04.9 Nontoxic goiter, unspecified (principal)
CPT/HCPCS: 76536

== ENCOUNTER → 2023-04-29 | Outpatient (CLI) | payer OTHER, SELFPAY ==
--- NOTE | 2023-04-29 15:45 | US_ITS ---
STUDY: ULTRASOUND OF THE FEMALE PELVIS - COMPLETE REASON FOR EXAM: Female, 32 years old. pelvic pain LMP: TECHNIQUE: Transabdominal and transvaginal TECHNICAL QUALITY: Adequate. COMPARISON: None. FINDINGS: The uterus is anteverted and is in a midline position. The uterus measures 6.9 x 4.5 x 3.3 cm. Normal uterine cervix. The endometrium measures 4.1 mm in thickness, and is hyperechoic. There is no demonstrated endometrial mass. There is no demonstrated myometrial mass. I.U.D. - The patient does not have an I.U.D. The right ovary is visualized. The right ovary measures 5.3 x 2.9 x 2.4 cm. There is no right ovarian cyst or ovarian mass. Small complex cyst measuring 1.9 x 2 x 1.6 cm possibly hemorrhagic.. There is normal arterial and normal venous vascularity. The left ovary is visualized. The left ovary measures 1.1 x 1 x 0.9 cm. There is no left ovarian cyst or ovarian mass. Small hyperechoic structure measuring 2.1 x 1.5 x 1.6 cm. There is normal arterial and normal venous vascularity. There is no fluid in the cul-de-sac. The pre void volume of the bladder was 323.9 ml. US/Pelvic w/ Transvaginal IMPRESSION: Small complex cyst in right adnexa possibly hemorrhagic cyst and small hyperechoic solid hyperechoic structure in left adnexa of uncertain etiology or clinical significance. Would recommend clinical correlation and follow-up studies pelvic MRI may be useful for further assessment as well if clinically indicated Electronically Signed: Levi Good MD at 17:25 EDT ,
== END | disposition home or self-care (01) ==
LOC: US 15:45
PROVIDERS: PCP Family Medicine; Referring Provider Nurse Practitioner Women's Health; Visit Provider Nurse Practitioner Women's Health
DX: R10.2 Pelvic and perineal pain (principal)
CPT/HCPCS: 76830; 76856

== ENCOUNTER → 2023-11-04 | Outpatient (CLI) | payer OTHER, SELFPAY ==
[2023-11-04 10:45] LABS: Absolute Lymphocyte Count 1.71 X10^3/uL (0.83-4.51); Absolute Neutrophil Count 8.4 X10^3/uL (2.0-7.7); Basophil# 0.04 X10^3/uL; Basophil% 0.4 % (0-1); Eosinophil# 0.08 X10^3/uL; Eosinophils% 0.7 % (0-5); Hematocrit 41.6 % (37-47); Hemoglobin 13.5 g/dL (12.0-15.0); Lymphocyte # 1.71 X10^3/ul (0.83-4.51); Mean Corp Hgb Conc 32.5 g/dL (32-36); Mean Corpuscular Hgb 27.9 pg (27.0-32.0); Mean Platelet Vol. 10.1 fl (6.2-12.0); Monocyte# 0.38 X10^3/uL; Monocyte% 3.6 % (0-10); NRBC Flagged by Analyzer 0 % (0-5); Neutrophil # 8.43 X10^3/uL (2.7-7.7); Neutrophil % 78.7 % (47-70); Platelet Count 298 K/mm3 (150-450); RBC Distribution Width CV 12.2 % (11.6-14.6); Red Blood Count 4.84 M/mm3 (4.2-5.4); White Blood Count 10.7 K/mm3 (4.4-11.0)
[2023-11-04 11:22] LABS: T4 Free Direct 1.33 ng/dL (0.76-1.46); Thyroid Stim Hormone (TSH) 1.17 uIU/mL (0.358-3.74)
[2023-11-04 11:32] LABS: Hemoglobin A1c 4.9 % (3.8-5.6)
[2023-11-04 11:55] LABS: HIV - WCH Non-Reactive (Nonreactive); Hepatitis B Surface Antigen Non-Reactive (Nonreactive); Hepatitis C Antibody Non-Reactive (Nonreactive); Rubella IgG Reactive (Nonreactive); Syphilis Antibodies Non-reactive
[2023-11-06 08:13] LABS: Chlamydia By Nucleic Acid AMP Negative (Negative); Gonococcus By Nucleic Acid AMP Negative (Negative)
[2023-11-08 16:09] LABS: HPV APTIMA, High Risk Negative (Negative)
== END | disposition home or self-care (01) ==
PROVIDERS: PCP Family Medicine; Referring Provider Advanced Practice Midwife; Visit Provider Advanced Practice Midwife
DX: O99.210 Obesity complicating pregnancy, unspecified trimester (principal); O99.280 Endocrine, nutritional and metabolic diseases complicating pregnancy, unspecified trimester; Z13.79 Encounter for other screening for genetic and chromosomal anomalies; E01.0 Iodine-deficiency related diffuse (endemic) goiter; Z12.4 Encounter for screening for malignant neoplasm of cervix; Z3A.00 Weeks of gestation of pregnancy not specified
CPT/HCPCS: 83036; 84439; 84443; 85025; 86703; 86762; 86780; 86803; 86850; 86900; 86901; 87086; 87088; 87340; 87491; 87591; 87624; 88175; G0145

== ENCOUNTER → 2023-12-20 | Outpatient (CLI) | payer OTHER, SELFPAY ==
--- NOTE | 2023-12-20 09:05 | US_ITS ---
STUDY: SECOND AND THIRD TRIMESTER OBSTETRICAL ULTRASOUND - LIMITED REASON FOR EXAM: Female, 33 years old history of leep -- please measure cervical length LMP: August 23, 2023. PRIOR ULTRASOUND: None. TECHNIQUE: Transabdominal and Transvaginal TECHNICAL QUALITY: Adequate. FINDINGS: There is a single intrauterine fetus. The fetus is in a breech presentation. There is demonstrated cardiac activity with a heart rate of 157 bpm. There is a normal amniotic fluid volume. The largest amniotic fluid pocket measures 4.3 cm. The amniotic fluid index (FIDEL) is within normal limits. The placenta is anterior in location and is not low lying. There are Grade 0 placental changes. The cervix measures 3.7 cm in length. BIOMETRY: Age by LMP: 7 weeks, 0 days. DIOGENES by LMP: May 29, 2024. IMPRESSION: Cervical length measures 3.7 cm. Electronically Signed: Td Hines MD at 11:14 EDT , STUDY: FIRST TRIMESTER OBSTETRICAL ULTRASOUND REASON FOR EXAM: Female, 33 years old history of leep -- please measure cervical length LMP: August 23, 2023. TECHNIQUE: Transvaginal TECHNICAL QUALITY: Adequate. PRIOR ULTRASOUND: None. FINDINGS: Cervical length measures 3.7 cm.. US/OB Limited (No Biometrics) IMPRESSION: Cervical length measures 3.7 cm. Electronically Signed: Td Hines MD at 11:15 EDT ,
== END | disposition home or self-care (01) ==
LOC: US 09:01
PROVIDERS: PCP Family Medicine; Referring Provider Obstetrics & Gynecology; Visit Provider Obstetrics & Gynecology
DX: O34.43 Maternal care for other abnormalities of cervix, third trimester (principal); Z98.890 Other specified postprocedural states; Z3A.00 Weeks of gestation of pregnancy not specified
CPT/HCPCS: 76815; 76817

== ENCOUNTER → 2024-03-01 | Outpatient (CLI) | payer OTHER, SELFPAY ==
[2024-03-01 15:24] LABS: Absolute Lymphocyte Count 1.69 X10^3/uL (0.83-4.51); Absolute Neutrophil Count 9.7 X10^3/uL (2.0-7.7); Basophil# 0.02 X10^3/uL; Basophil% 0.2 % (0-1); Eosinophil# 0.12 X10^3/uL; Hematocrit 35.4 % (37-47); Hemoglobin 11.2 g/dL (12.0-15.0); Lymphocyte # 1.69 X10^3/ul (0.83-4.51); Mean Corp Hgb Conc 31.6 g/dL (32-36); Mean Corpuscular Hgb 27.3 pg (27.0-32.0); Mean Corpuscular Volume 86.3 fL (81-99); Mean Platelet Vol. 9.7 fl (6.2-12.0); Monocyte# 0.47 X10^3/uL; Monocyte% 3.9 % (0-10); NRBC Flagged by Analyzer 0 % (0-5); Neutrophil # 9.68 X10^3/uL (2.7-7.7); Neutrophil % 80.4 % (47-70); Platelet Count 292 K/mm3 (150-450); RBC Distribution Width CV 13.4 % (11.6-14.6); RBC Distribution Width SD 41.3 fl (35.1-43.9)
[2024-03-01 15:56] LABS: Glucose Challenge Gest 1H 50g 132 mg/dL (70-140)
[2024-03-01 16:17] LABS: HIV - WCH Non-Reactive (Nonreactive); Syphilis Antibodies Non-reactive
== END | disposition home or self-care (01) ==
PROVIDERS: PCP Family Medicine; Referring Provider Obstetrics & Gynecology; Visit Provider Obstetrics & Gynecology
DX: O09.90 Supervision of high risk pregnancy, unspecified, unspecified trimester (principal); Z3A.00 Weeks of gestation of pregnancy not specified
CPT/HCPCS: 82950; 85025; 86703; 86780; 86850; 86900; 86901

== ENCOUNTER → 2024-05-01 | Outpatient (CLI) | payer OTHER, SELFPAY | END | disposition home or self-care (01) | PROVIDERS: PCP Family Medicine; Referring Provider Obstetrics & Gynecology; Visit Provider Obstetrics & Gynecology | DX: O09.90 Supervision of high risk pregnancy, unspecified, unspecified trimester (principal); Z3A.00 Weeks of gestation of pregnancy not specified | CPT/HCPCS: 87081 ==

== ENCOUNTER → 2024-05-02 | Outpatient (CLI) | payer OTHER, SELFPAY ==
--- NOTE | 2024-05-02 12:24 | US_ITS ---
STUDY: SECOND AND THIRD TRIMESTER OBSTETRICAL ULTRASOUND - LIMITED REASON FOR EXAM: Female, 33 years old GROWTH-thyroid disease in , obesity in LMP: Established due date 05/30/2024 PRIOR ULTRASOUND: No relevant prior comparison study available TECHNIQUE: Transabdominal TECHNICAL QUALITY: Adequate. FINDINGS: Single fetus identified in the uterus. Cephalic presentation. heart rate: 153 bpm. Amniotic fluid index 15.6 cm. Maximum vertical pocket 5.3 cm. Placenta anterior. Grossly intact. No previa. Cervical length: Not visualized. BIOMETRY: BPD: 8.93 cm: 36 weeks, 1 days HC: 31.86 cm: 35 weeks, 6 days AC: 34.0 cm: 37 weeks, 6 days FL: 7.19 cm: 36 weeks, 6 days Estimated weight: 3214 grams, +/- 482 grams, 84 percentile. US/OB Limited With Biometrics IMPRESSION: Single live intrauterine at estimated gestational age 36 weeks 2 days based on composite measurements. Electronically Signed: Terese Bundy MD at 17:12 EDT ,
== END | disposition home or self-care (01) ==
PROVIDERS: PCP Family Medicine; Referring Provider Obstetrics & Gynecology; Visit Provider Obstetrics & Gynecology
DX: O09.299 Supervision of pregnancy with other poor reproductive or obstetric history, unspecified trimester (principal); O99.210 Obesity complicating pregnancy, unspecified trimester; Z98.891 History of uterine scar from previous surgery; E01.0 Iodine-deficiency related diffuse (endemic) goiter; Z3A.00 Weeks of gestation of pregnancy not specified; O99.280 Endocrine, nutritional and metabolic diseases complicating pregnancy, unspecified trimester
CPT/HCPCS: 76816

== ENCOUNTER 2024-05-23 05:08 | Inpatient (IN) | payer OTHER, SELFPAY ==
[2024-05-23] VITALS (17 sets, daily range): BP systolic 107–137; BP diastolic 56–90; PULSE 78–104; RESP 12–24; TEMP 36.1–36.9; O2SAT 96–100; BMI 37.3
[2024-05-23] MEDS: Lactated Ringers 1,000 ML 999 ML IV (05:35)
[2024-05-23 05:50] LABS: Absolute Neutrophil Count 6.5 X10^3/uL (2.0-7.7); Basophil# 0.02 X10^3/uL; Basophil% 0.2 % (0-1); Eosinophils% 1.1 % (0-5); Hematocrit 32.8 % (37-47); Hemoglobin 10.4 g/dL (12.0-15.0); Lymphocyte % 20.1 % (19-41); Mean Corp Hgb Conc 31.7 g/dL (32-36); Mean Corpuscular Hgb 25.1 pg (27.0-32.0); Mean Platelet Vol. 10.2 fl (6.2-12.0); Monocyte# 0.45 X10^3/uL; NRBC Flagged by Analyzer 0 % (0-5); Neutrophil # 6.52 X10^3/uL (2.7-7.7); Platelet Count 237 K/mm3 (150-450); RBC Distribution Width CV 14.1 % (11.6-14.6); RBC Distribution Width SD 40.4 fl (35.1-43.9); Red Blood Count 4.15 M/mm3 (4.2-5.4); White Blood Count 8.9 K/mm3 (4.4-11.0)
[2024-05-23] MEDS: Acetaminophen 500 MG Tablet 1000 MG PO ×3 (06:40→18:26)
[2024-05-23] MEDS: Lactated Ringers 1,000 ML 150 ML IV (06:41)
[2024-05-23] MEDS: Sodium Citrate/Citric Acid 30 ML UDC PO (06:58)
--- NOTE | 2024-05-23 07:19 | HP.PCM.OB_ITS ---
HPI - General General Date of Admission: 05/23/24 HPI Narrative PAPA FRIEND, is a 33 y/o @ 39 weeks 1 day who presents to L&D for a scheduled repeat section. She denies complaints this morning other than nausea. Maternal Data Information DIOGENES Calculator Estimated Delivery Date Method Current WG Current Estimate 05/29/24 Ultrasound #1 39w 1d Other Estimates 06/08/24 LMP (Certain) 37w 5d PFSH PFSH Medical History Seasonal allergies Migraine headache anxiety COVID-19 COVID-19 affecting in first trimester H/O abnormal cervical Papanicolaou smear COVID-19 vaccine series completed Hx LEEP (loop electrosurgical excision procedure), cervix, Home Medications ?Medication ?Instructions ?Recorded ?Last Taken ?Type multivitamin no.47-iron fum 27 1 cap PO DAILY 06/18/21 05/22/24 22:00 History mg-folate no.1 1 mg-dha 300 mg capsule (PNV-DHA) fluoxetine 40 mg capsule (Prozac) 40 mg PO DAILY anxiety #90 caps 02/24/23 05/23/24 03:30 Rx magnesium oxide 500 mg capsule 500 mg PO DAILY supplement 12/08/23 05/22/24 22:00 History hydroxyzine pamoate 25 mg capsule 25 mg PO QHS sleep #30 caps 05/08/24 05/22/24 22:00 Rx (Vistaril) Allergy/AdvReac Type Severity Reaction Status Date / Time chlorhexidine (From Allergy Severe Hives Verified 05/23/24 05:25 Hibiclens) Family History Mother Breast cancer Father Cancer Melanoma Hypertension Grandfather Hypertension Paternal Surgical History [place] teeth extracted Status post section H/O knee surgery Social History adopted: No household members: spouse housing: house number of children: 1 current occupational status: employed current occupation: [employer] in [place], [place] pets and animals: Yes (Avoid litterbox) pets and animals: cat(s) and dog(s) history of recent travel: No sexually active: Yes Smoking Status: Never smoker second hand exposure: Yes alcohol intake: current alcohol intake frequency: holidays/special occasions only details: not while substance use type: does not use well-balanced diet: about half the time caffeine: Yes Type: coffee Number of servings: 1 eating out: 1-3 times/week during the past year weight has: increased > 10 lbs what type of physical activity do you participate in: walking frequency: 3-4 times per week duration: 45-60 minutes/day juan/samaritan: None seatbelt use: always do you feel safe at home: Yes additional social history: - Sin (construction) History 2 Elective abortions Hx Para 1 Spontaneous abortions Hx # Term Pregnancies Ectopic pregnancies Hx # Pregnancies Multiple births # of living children 1 Past Pregnancies Del. Date Name GA/Weeks Outcome Route Bth Weight Gen Labor Lgth Anesthesia Del Locatn Provider FOB 01/15/22 [place] 37 live - full term 8lbs 2oz Male [facility] Lidia Walker Delivery Date: 01/15/22 Last Updated by: Glo Head LGA, COVID, breech Visit Details Expected Delivery Route/Plan Labor Preferences- CB/BF classes: [] labor support person: [] labor intervention preferences: [] pain management options preferred: [] cut cord/dad catch: [] : [] PP control planned: [] discussed possible routes of delivery and associated risks: [] special requests: [] Plans Covid status: [] Flu vaccine: [] Tdap vaccine: [] Rhogam: [] LARC form signed: [] Problem list reviewed and updated with the most current plan of care details and appropriate orders placed. Relevant counseling for the gestational age provided. Continue routine care and follow up unless otherwise noted in visit notes/problem list details OB Flowsheet Initial Weight: Not Recorded Date -?-?-?-?-?-?-?-?-?-?-?-?- EGA Weight BP Urine Prot -?-?-?-?-?-?-?-?-?-?-?-?- Glucose FHR FuHt Pres Dilation -?-?-?-?-?-?-?-?-?-?-?-?- Effaced St Visit Note 11/04/23 -?-?-?-?-?-?-?-?-?-?-?-?- 10w 3d 220 lb 117/74 -?-?-?-?-?-?-?-?-?-?-?-?- 180 -?-?-?-?-?-?-?-?-?-?-?-?- KW- Not cons wit h dates. CRL 31mm. cons with 10.3 week gestation. wants NIPT. 12/08/23 -?-?-?-?-?-?-?-?-?-?-?-?- 15w 2d 217 lb 109/72 Negative -?-?-?-?-?-?-?-?-?-?-?-?- Negative 150 -?-?-?-?-?-?-?-?-?-?-?-?- JV- normal nipt, tsh , and a1c. having a girl! plans rpt section. plan 16 week CL check. 01/03/24 -?-?-?-?-?-?-?-?-?-?-?-?- 19w 0d 218 lb 4 oz 92/55 Nega tive -?--?-?-?-?-?-?-?-?-?-?-?- Negative 147 -?-?-?-?-?-?-?-?-?-?-?-?- JV- CL was 3.7 l ast us. having headaches from jaw to neck. chiropractor and massage did not help and acturally made it worse. dentist appt is not until february. will try flexeril 02/03/24 -?-?-?-?-?-?-?-?-?-?-?-?- 23w 3d 217 lb 108/68 Negative -?-?-?-?-?-?-?-?-?-?-?-?- Negative 147 -?-?-?-?-?-?-?-?-?-?-?-?- JV- headache and jaw pain getting better with massage. gct ordered. JV- headache and jaw pain ge tting better with massage. gct ordered. low lying placenta discussed. now wants a repeat . 03/01/24 -?-?-?-?-?-?-?-?-?-?-?-?- 27w 2d 219 lb 6 oz 104/70 Nega tive -?-?-?-?-?-?-?--?-?-?-?-?- Negative 157 28 -?-?-?-?-?-?-?-?-?-?-?-?- JV- glucola done today. no lof, vaginal bleeding, or dec fm. no ocmplaints. tdap next visit. set up for rpt cs on 05/2303/24/24 -?-?-?-?-?-?-?-?-?-?-?-?- 30w 4d 218 lb 8 oz 104/64 Nega tive -?-?-?-?-?-?-?-?-?-?-?-?- Negative 153 30 -?-?-?-?-?-?--?-?-?-?-?-?- LC- no vb/ctx/lo f. good fm.larc and tdap today. 04/04/24 -?-?-?-?-?-?-?-?-?-?-?-?- 32w 1d 220 lb 6 oz 119/74 Nega tive -?-?-?-?-?-?-?-?-?-?-?-?- Negative 145 34 -?-?-?-?-?-?-?-?-?-?-?-?- JV- no lof, vagi nal bleeding, or dec fm. has pressure from the baby's head. plan for growth at 36 weeks. 04/17/24 -?-?-?-?-?-?-?-?-?-?-?-?- 34w 0d 220 lb 2 oz 112/66 Nega tive -?-?-?-?-?-?-?-?-?-?-?-?- Negative 140 35 -?-?-?-?-?-?-?-?-?-?-?-?- JV- growth scan scheduled for wednesday next week. no lof, vaginal bleeding, or dec fm. no complaints. 05/01/24 -?-?-?-?-?-?-?-?-?-?-?-?- 36w 0d 221 lb 116/65 Negative -?-?-?-?-?-?-?-?-?-?-?-?- Negative 141 38 Cephalic 0 .5 -?-?-?-?-?-?-?-?-?-?-?-?- JV- gbs collecte d. no complaints today other then pelvic pressure. 05/08/24 -?-?-?-?-?-?-?-?-?-?-?-?- 37w 0d 221 lb 8 oz 130/82 Nega tive -?-?-?-?-?-?-?-?-?-?-?-?- Negative 145 37 Breech 0.5 -?-?-?-?-?-?-?-?-?-?--?-?- JV- gbs neg, 95t h% breech on ultrasound. scheduled section set. no complaints other than inability to sleep. vistaril sent to pharmacy. 05/15/24 -?-?-?-?-?-?-?-?-?-?-?-?- 38w 0d 224 lb 124/81 Negative -?-?-?-?-?-?-?-?-?-?-?-?- Negative 140 38 Cephalic 0 .5 -?-?-?-?-?-?-?-?-?-?-?-?- JV- consent for surgery signed today. wants her to cut cord, allergic to chlorhexadine. does noes not want tubal. no complaints today. ROS Constitutional Constitutional: Denies change in weight, fatigue, fever(s), headache(s), poor appetite or weakness Eyes Eyes: Denies blurry vision, change in vision, seeing flashes or spots in vision ENT HEENT: Denies dizziness, headache(s), loss taste/smell or sore throat Cardiovascular Cardiovascular: Denies chest pain, dizziness, dyspnea, irregular heart rhythm, leg edema, palpitations, rapid heart rate or vomiting Respiratory/Chest Respiratory/Chest: Denies chest tightness, cough, dyspnea or breast pain Gastrointestinal Gastrointestinal: Denies abdominal pain, anorexia, constipation, cramping, diarrhea, hemorrhoids, vomiting or weight changes Genitourinary Genitourinary: Denies dysuria, flank pain, genital lesions, genital pain, urinary frequency or urinary urgency Musculoskeletal Musculoskeletal: Denies back pain, difficulty walking, joint pain, limited range of motion, muscle cramps or numbness Integumentary Integumentary: Denies lesions or unusual bruising Neurologic Neurologic: Denies abnormal movements, abnormal speech, dizziness, numbness, seizure-like activity or syncope Psychiatric Psychiatric: Denies anxiety, behavioral changes, change in appetite, change in libido, cognitive impairment, confusion, depression, difficulty concentrating, hallucinations or suicidal thoughts Endocrine Endocrinology: Denies excessive sweating, polydipsia or polyuria Hematologic/Lymphatic Hematologic/Lymphatic: Denies easy bleeding, easy bruising or lymphadenopathy Allergic/Immunologic Allergic/Immunologic: Denies itchy eyes, lip swelling, seasonal rhinorrhea, rhinitis, throat swelling, tongue swelling, eczemia, wheezing or asthma Vital Signs Vital Signs Vital Signs: 05/23/24 05:26 05/23/24 05:26 05/23/24 05:54 Temperature 98.4 F Temperature Source Temporal Pulse Rate 104 H 98 Respiratory Rate 16 Blood Pressure 118/75 118/75 Blood Pressure Mean 89 BP Systolic 118 BP Diastolic 75 Blood Pressure Source Monitor Blood Pressure Position Semi-Fowlers Blood Pressure Location Left Arm Pulse Ox 98 Oxygen Delivery Method Room Air Weight Weight: 224 lb 8 oz Body Mass Index (BMI) 37.3 Physical Exam Const alert, oriented x3, no apparent distress and healthy appearing General Appearance: cooperative; Negative for anxious HEENT normocephalic Face and Sinus: normal facial exam Eyes EOMs intact bilaterally and no scleral icterus General Eye: normal appearance of both eyes Neck full ROM and supple Lymph Lymphatic: no lymphadenopathy noted Chest Chest: abnormal inspection of the chest Resp normal respiratory effort Effort and Inspection: able to speak in complete sentences Cardio regular rate GI soft to palpation and non-tender Inspection: gravid Palpation: soft; Negative for tender Back/Spine no CVA tenderness Extremity normal to inspection, full ROM and no clubbing, cyanosis or edema General Extremity: Negative for calf tenderness or edema Skin Lesions: no lesions Rashes: no rashes Psych mental status grossly normal Labs Labs Labs: Blood Type O POSITIVE Antibody Screen NEGATIVE Hct 32.8 % (37-47) L Hgb 10.4 g/dL (12.0-15.0) L Pap Smear Negative Obstetrics Ultrasound Syphilis Total Ab Non-reactive Rubella IgG Antibody Reactive (Nonreactive) Hep Bs Antigen Non-Reactive (Nonreactive) Hepatitis C Antibody Non-Reactive (Nonreactive) Chlamydia DNA (JCARLOS) Negative (Negative) N.gonorrhoeae DNA (JCARLOS) Negative (Negative) HIV 1&2 Antibody Non-Reactive (Nonreactive) Glucose 1 Hr 50 gm 132 mg/dL (70-140) Miscellaneous Test Assessment & Plan (1) Hx of oligohydramnios in prior , currently : COMMENT: US at 36 weeks. 29w: EFW 57%, AC 77% growth at 36 weeks: AC 95th% (2) Obesity affecting : COMMENT: HgbA1c ordered with NOB labs (3) History of : COMMENT: R C/S with JV. scheduled for 05/23 @ 7:15 with JV (4) Hx LEEP (loop electrosurgical excision procedure), cervix, : QUALIFIERS: Trimester: third trimester Qualified Code(s): O34.43 - Maternal care for other abnormalities of cervix, third trimester; Z98.890 - Other specified postprocedural states COMMENT: check serial CL (5) Supervision of high-risk : COMMENT: PRR, , DIOGENES 06/08/24, girl,HOMERO Salvador, Sin (6) : QUALIFIERS: Weeks of gestation: 38 weeks Qualified Code(s): Z3A.38 - 38 weeks gestation of COMMENT: Neg GBS NIPT low risk (7) Nausea & vomiting: (8) Anxiety and depression: COMMENT: currently on Prozac, counseling encouraged. Stable (9) Family history of breast cancer in mother: COMMENT: Dx age 48:negative genetics (10) Thyromegaly: COMMENT: US showed borderline enlargement, repeat 1 year. TSH, Free T4, TSHR AB (NL) ordered with NOB labs PLAN: Plan After discussing the patient's diagnosis and treatment plan options, patient wishes to proceed with surgical management. I have discussed with the patient the risks, benefits, and alternatives of the procedure which include but are not limited to risks of anesthesia, bleeding, infection, possible damage to bowel, bladder, or surrounding vasculature which could lead to additional surgery to evaluate any complications. Patient agrees to procedure and wishes to proceed.
--- NOTE | 2024-05-23 07:22 | DCINST_ITS ---
Discharge Instructions Diet Discharge Diet: No restrictions Activity Discharge Activity: May Not Drive (for 2 weeks or while taking narcotic pain medications.), May Shower and May Take a Tub Bath (in 7 days.) May resume sexual activity in: 4-6 weeks Weight Bearing Status: Full weight bearing Lifting Restrictions: 20 pounds Dressing / Incision Call your doctor if your incision/area has: Continuous Slow Oozing, Sudden Increased Bleeding, Increased Pain/ Swelling, Increased Redness and Foul Smelling Discharge Call your doctor if you observe: Fever of 101 or Higher and Using more than 1 pad per hour Suture Line Care: Avoid Pulling/Pushing and Avoid Pinching/Bending Cleanse incision/area with: Soap & Water and Keep Dressing Clean & Dry Follow Up Care Please Follow Up With: Lidia Wells DO When: Call [phone] to make an appointment for an incision check in 1-2 weeks. Test Results: Test results from this visit will be discussed in further detail at your follow- up appointment, if applicable. Discharge Plan Admission Admit Date/Time: 05/23/24 05:08 Primary Reason for Your Visit: section Attending Provider: Lidia Wells Primary Care Provider: RICARDO SOTELO Discharge Orders/Prescriptions Prescriptions: New ibuprofen 800 mg tablet 800 mg PO Q8H PRN (Reason: pain) Qty: 30 0RF oxycodone-acetaminophen [Percocet] 5-325 mg tablet 1 tab PO Q4H PRN (Reason: pain) 7 Days Qty: 20 0RF Rx Instructions: 1-2 tabs q 4 hrs as needed for pain Continued fluoxetine [Prozac] 40 mg capsule 40 mg PO DAILY Qty: 90 3RF hydroxyzine pamoate [Vistaril] 25 mg capsule 25 mg PO QHS Qty: 30 0RF No Action PNV-DHA 27 mg iron-1 mg -300 mg capsule 1 cap PO DAILY magnesium oxide 500 mg capsule 500 mg PO DAILY Referrals / Follow Up: RICARDO SOTELO MD [Primary Care Provider] - Disposition Disposition (needs filled in before D/C Order can be placed): Home, Self Care
[2024-05-23] MEDS: Cefazolin 2 GM in 0.9% Normal Saline (100mL Bag) 100 ML IV (07:37)
[2024-05-23] MEDS: Methylergonovine 0.2 MG/ML Ampul IM (08:00)
[2024-05-23] MEDS: Oxytocin 15 Units/NS 250ml 15 UNITS/250 ML IV.SOLN 83 UNITS IV (08:01)
[2024-05-23 08:17] LABS: Syphilis Antibodies Non-reactive
--- NOTE | 2024-05-23 08:56 | OP.PCM_ITS ---
Assessment & Plan (1) History of : COMMENT: R C/S with JV. scheduled for 05/23 @ 7:15 with JV (2) Supervision of high-risk : COMMENT: PRR, , DIOGENES 06/08/24, girl,HOMERO Salvador, Sin (3) Thyromegaly: COMMENT: US showed borderline enlargement, repeat 1 year. TSH, Free T4, TSHR AB (NL) ordered with NOB labs Maternal Data Information DIOGENES Calculator Estimated Delivery Date Method Current WG Current Estimate 05/29/24 Ultrasound #1 39w 1d Other Estimates 06/08/24 LMP (Certain) 37w 5d Final DIOGENES Source: US <20 weeks Operative Report (OB) Cecarean Details Procedure Type: low transverse Surgeon: Lidia Wells Date of Procedure: 05/23/24 Procedure Start Time: 07:47 Procedure Stop Time: 08:30 Time of Delivery: 07:52 Pre-Operative Diagnosis: Repeat Elective Post-Operative Diagnosis: Same as Pre-operative diagnosis Classification: Scheduled Type of Anesthesia: Spinal Antibiotic Given: Ancef 2 grams IV x1 Drain: Mott to straight drain Estimated Blood Loss: 1000 Findings Description of surgery: The patient is a 33 y/o @ 30 weeks 1 day whp presented for repeat C- section. Spinal anesthesia was placed without difficulty. Mott catheter was placed. The patient was placed in the dorsal supine position with leftward tilt. Patient was prepped and draped in the normal sterile fashion. Pfannenstiel skin incision was made with the scalpel and carried through to the underlying layer of fascia with the scalpel. Fascia was nicked in the midline a nd the incision extended laterally. The rectus bellies were dissected off superiorly and inferiorly with out complication both sharply and bluntly. The peritoneum was entered digitally. The incision was stretched and a low transverse uterine incision was made with the scalpel. The infant's head was delivered atraumatically followed by the anterior and posterior shoulders without complication the rest of the delivered. The cord was clamped and cut and the was handed off to awaiting nurse. The placenta was delivered spontaneously immediately following and was noted to be intact and have a three- vessel cord. The uterus was exteriorized cleared of all clots and debris, and the incision was closed in a double layer closure using #1 Vicryl and #1 Monocryl. The ovaries and fallopian tubes were noted to be within normal limits with exception of arcuate shape uterus and marked dilated right adnexal blood vessels. The uterus was returned to the maternal abdomen and gutters were cleared of all clots and debris. The peritoneum was closed with 3-0 Monocryl in a running fashion. Fascia was closed with 0 PDS in a running fashion. Subcutaneous tissue was copiously irrigated and the skin was closed with 3-0 Monocryl in a subcuticular fashion. Mepilex dressing was applied without complication. Patient was taken to recovery in stable condition. It was discussed with the patient that based on the clinical information obtained during this encounter, combined with her history, at this time I would recommend repeat section for future deliveries if further pregnancies are desired. Surgical findings: arcuate uterus and marked dilated right adnexal blood vessels Presentation: Vertex Amniotic Membrane Rupture Type: Artificial Amniotic Fluid Description: Clear Placental Delivery Description: Expressed Placenta Disposition: [facility] Specimen collected: No Cord Vessel Description: 3 Vessels Cord Entanglement: None Infant A gender: Female (1 minute): 8 (5 minute): 9 Delayed Cord Clamping: Yes Lna monitoring tech: Yes Trimming Department Blocker: Shaheen Tdiwell Tasks completed by volunteer assistant: Closing, Hemostasis: Clamp, Retracting and Other (fundal pressure ) Additional assistant professor of spanish?: No Complications Complications: No Multi Select Codes Urinary/Genital Urinary/Genital CPT Codes: 81912 Delivery [facility]
[2024-05-23] MEDS: Ketorolac 30 MG/ML Syringe IV ×3 (09:24→20:58)
[2024-05-23] MEDS: Senna/Docusate Sodium 1 Tablet PO (11:35)
[2024-05-23] MEDS: Enoxaparin 40 MG/0.4 ML Syringe SC (19:38)
[2024-05-23] MEDS: 0.9% Saline Lock 10 ML Syringe IV (20:58)
[2024-05-24] VITALS: BP 145/79; PULSE 86; RESP 16; O2SAT 96
[2024-05-24] MEDS: Acetaminophen 500 MG Tablet 1000 MG PO ×4 (00:03→18:16)
[2024-05-24] MEDS: Ketorolac 30 MG/ML Syringe IV (03:06)
[2024-05-24] MEDS: 0.9% Saline Lock 10 ML Syringe IV (03:07)
[2024-05-24 05:00] VITALS: BP 121/76; PULSE 83; RESP 18; O2SAT 98
[2024-05-24 05:14] LABS: Hematocrit 27.4 % (37-47); Hemoglobin 8.5 g/dL (12.0-15.0); Mean Corpuscular Hgb 24.9 pg (27.0-32.0); Mean Corpuscular Volume 80.1 fL (81-99); Mean Platelet Vol. 9.4 fl (6.2-12.0); Platelet Count 180 K/mm3 (150-450); RBC Distribution Width CV 14.4 % (11.6-14.6); RBC Distribution Width SD 41.4 fl (35.1-43.9); Red Blood Count 3.42 M/mm3 (4.2-5.4)
--- NOTE | 2024-05-24 08:04 | PCM.PN.OB ---
Subjective Subjective Patient doing well without complaints. Tolerating PO. Ambulating and voiding without difficulty. Feeding well. Denies chest pain, shortness of breath, calf pain/swelling, fevers, chills, lightheadedness. Objective Data Objective Data Vital Signs: Vital Signs Temp Pulse Resp BP Pulse Ox O2 Del Method 98.1 F 83 18 121/76 H 98 Room Air 05/23/24 19:53 05/24/24 05:00 05/24/24 05:00 05/24/24 05:00 05/24/24 05:00 05/24/24 05:00 Oxygen Delivery Method Room Air Weight: 224 lb 8 oz Body Mass Index (BMI) 37.3 Intake & Output: Intake and Output for Last 24 Hours 05/22/24 05/23/24 05/24/24 23:59 23:59 23:59 Intake Total 3845 / 3845 Output Total 1850 / 2350 800 / 800 Balance 1995 / 1495 -800 / -800 Lab / Micro Data 05/24/24 05:05 Labs: Laboratory Results - last 24 hr 05/23/24 05:35: Syphilis Total Ab Non-reactive 05/24/24 05:05: WBC 11.0, RBC 3.42 L, Hgb 8.5 L, Hct 27.4 L, MCV 80.1 L, MCH 24.9 L, MCHC 31.0 L, RDW Std Deviation 41.4, RDW Coeff of Leila 14.4, Plt Count 180, MPV 9.4 Physical Exam Const alert and oriented x3 HEENT normocephalic Eyes PERRL Neck full ROM Resp normal respiratory effort GI soft to palpation GI Narrative: FF below U. Dressing dry and intact Palpation: tender other (appropriately) Assessment & Plan (1) Status post section: COMMENT: RLTCS Girl Yuliet JV PLAN: Plan s/p LTCS PPD # 1 1. routine post care 2. breast feeding- support given 3. rh positive 4. rubella immune 5. possibly home today
[2024-05-24] MEDS: Ibuprofen 600 MG Tablet PO ×3 (08:44→21:22)
[2024-05-24 08:49] VITALS: BP 121/67; PULSE 77; RESP 18; TEMP 36.5; O2SAT 96
[2024-05-24] MEDS: Senna/Docusate Sodium 1 Tablet PO (09:50)
[2024-05-24] MEDS: Fluoxetine HCl 40 MG CAPSULE PO (09:51)
[2024-05-24] MEDS: FLU VACC 2024-25(6MOS UP)/PF 45 MCG/0.5 ML SYRINGE IM (09:51)
--- NOTE | 2024-05-24 13:40 | NURSING ---
report given to Melissa Lee RN who is assuming care of pt at this time
[2024-05-24 13:56] VITALS: BP 114/70; PULSE 100; RESP 18; TEMP 36.6; O2SAT 99
--- NOTE | 2024-05-24 14:01 | CASEMGMT ---
Social Work Assessment Labor and Delivery Unit Patient Address: [facility] [address] [place] [id number] Phone number: [phone] Date of Referral: 05/23/24 Time of Referral:? 1434 Referred By: Dr. Wells Date of Intervention: 05/24/24?? Time of Intervention:? 914 Reason for Referral:?hx of depression/ anxiety per patient, on prozac Sw completed chart review and acknowledges social work consult due to maternal mental health history. Sw presented to bedside and introduced self to mother of baby (PEGGY- Juanita) and father of baby (BRI- Sin). Sw explained reason for involvement and completed psychosocial assessment. History obtained from: medical records, MOB and FOB. ?? Household composition: Currently residing in the family home is PEGGY, BRI, their older son, [place] (2) and baby when ready for discharge. Parents deny any housing concerns reporting it is safe and secure. Patient's parent/guardian status:? Parents report that they have been together for 5 years after going to school together. No concerns reported of domestic violence or intimate partner violence. This is second baby for parents together. ? Medical History: ?PEGGY is 33 year old Caucaisan female who is 2, para 1- now 2 following labor and delivery of . PEGGY received routine care during with [place]. PEGGY presented to hospital for scheduled repeat on 05/23/24 at 39 weeks gestation. Baby girl, named Yuliet Pineda, was born weighing 7lb 13oz with apgars of 8 and 9 at one and five minutes of life, respectfully. PEGGY is breast feeding and reports that it is going well. Baby will be followed by Dr. Adams for pediatrics. Educational Status:? Both parents graduated high school, PEGGY obtained an associates degree. BRI was in the . No concerns reported with reading, learning or comprehension. Financial Status: Both parents are gainfully employed outside of the home. 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 Both parents are able to take some time off of work for maternity/ paternity leave. Infant Supplies: Parents have obtained all necessary baby supplies, including: car seat, safe sleep space, clothes, diapers and wipes. Childcare/Caregiver(s):? MOB will be the primary caregiver for baby along with FOB when he is not at work, when both parents have returned to work they have an inhome daycare that they use and maternal grandma. Transportation:?? Both parents have their drivers license and reliable means of transportation. No barriers at this time. Programs/Agencies Involved: ???Parents are over income for community agencies that provide financial assistance. MOB is not connected to any mental health supports at this time. Children Services/Legal Issues:??No history of Children services involvement. No reason warranting referral to be made at this time. ? Behavioral Health Issues: ??Mental Health History: FOSergey denies mental health history. PEGGY states that she has been diagnosed with anxiety, depression and did experience anxiety after her first baby was born. PEGGY is prescribed prozac from her PCP. MOB states that she can tell a difference with the medication in her mental health status. MOB states that she does not believe that she struggled with her mental health during the and is aware of signs and symptoms to lookout for during this period. ??? Substance Use History:?Parents deny substance use prior to and during . ? Family History: Parents deny family history of addiction/ substance use and significant mental health diagnoses. ? Drug Screens: No drug screens observed in chart review. Family/Social Stressors:? Parents deny any issues, concerns or stressors at this time. Support Systems: PEGGY identifies that maternal grandparents, FOB her aunt Palak and paternal grandma are her biggest supports. Depression/Shaken Baby/Safe Sleeping: Mak educated parents on signs and symptoms of baby blues and mood and anxiety disorders to be mindful of during this period. MOB states that she is more open to recognizing that she may struggle with her mental health following this , as before she did not know what to be mindful of. MOB states that she is open with FOB about what she is feeling/ struggling with and also has access to mental health supports if warranted. MOB states that she feels great right now and does not feel like her mental health is struggling. FOB reports that he would be able to recognize if MOB were to struggle with her mental health and would know how to help and support her. Mak educated parents on shaken baby prevention and ABCs of safe sleep. Parents express understanding. ASSESSMENT:? MOB and baby admitted following labor and delivery. MOB observed to be in bed and nursing baby upon sw arrival to bedside. Parents welcoming of sw and actively involved in completion of psychosocial assessment. MOB aware of mental health concerns to be mindful of during this period. MOB talkative and polite. Both parents report to have a connection with baby. Parents have everything that they need for baby and have a lot of natural supports in place. PLAN:?? No other services requested or indicated. MOB and baby to be discharged when medically ready. Parents were provided literature regarding: signs and symptoms of baby blues and mood and anxiety disorders, Help Me Grow, shaken baby prevention, ABCs of safe sleep and a list of county resources that are available for them should any needs present themselves. Lottie Connor, OUTPATIENT PHYSICAL THERAPIST, JUNIOR PHP DEVELOPER
[2024-05-24 20:00] VITALS: BP 117/81; PULSE 90; RESP 16; TEMP 37.1; O2SAT 100
[2024-05-24] MEDS: Enoxaparin 40 MG/0.4 ML Syringe SC (21:23)
[2024-05-25] MEDS: Acetaminophen 500 MG Tablet 1000 MG PO ×2 (00:37→06:42)
[2024-05-25 00:49] VITALS: BP 120/70; PULSE 77; RESP 16; TEMP 36.6; O2SAT 97
[2024-05-25] MEDS: Ibuprofen 600 MG Tablet PO ×2 (03:09→09:48)
--- NOTE | 2024-05-25 07:17 | PCM.PN.OB ---
Subjective Subjective Patient doing well without complaints. Tolerating PO. Ambulating and voiding without difficulty. feeding well. Denies chest pain, shortness of breath, calf pain/swelling, fevers, chills, lightheadedness. Objective Data Objective Data Vital Signs: Vital Signs Temp Pulse Resp BP Pulse Ox O2 Del Method 97.8 F 77 16 120/70 97 Room Air 05/25/24 00:49 05/25/24 00:49 05/25/24 00:49 05/25/24 00:49 05/25/24 00:49 05/25/24 00:49 Oxygen Delivery Method Room Air Weight: 224 lb 8 oz Body Mass Index (BMI) 37.3 Intake & Output: Intake and Output for Last 24 Hours 05/23/24 05/24/24 05/25/24 23:59 23:59 23:59 Intake Total 3845 / 3845 Output Total 1850 / 2350 800 / 800 Balance 1995 / 1495 -800 / -800 Lab / Micro Data 05/24/24 05:05 ROS Constitutional Constitutional: Reports systems reviewed and no addt'l complaints, except as documented Cardiovascular Cardiovascular: Reports systems reviewed and no addt'l complaints, except as documented Respiratory/Chest Respiratory/Chest: Reports systems reviewed and no addt'l complaints, except as documented Gastrointestinal Gastrointestinal: Reports systems reviewed and no addt'l complaints, except as documented Physical Exam Const alert, oriented x3 and no apparent distress HEENT Head and Scalp: atraumatic Resp normal respiratory effort GI soft to palpation and non-tender Inspection: incision intact, healing well and drainage (none) Bimanual Exam - Vag & Uterus: uterus non-tender Uterus Palpation: uterus fundus firm (below Umbilicus) Assessment & Plan (1) Status post section: COMMENT: RLTCS Girl Yuliet JV PLAN: Plan s/p LTCS PPD # 2 1. routine post care 2. breast feeding- support given 3. rh positive 4. rubella immune
--- NOTE | 2024-05-25 07:18 | PCM.DC.SUM ---
Providers Date of Admission: 05/23/24 Primary Care Physician: RICARDO SOTELO MD Reason For Visit: REPEAT C SECTION Diagnosis Discharge Diagnosis (1) Status post section: Status: Acute Code(s): Z98.891 - History of uterine scar from previous surgery Plan s/p LTCS PPD # 2 1. routine post care 2. breast feeding- support given 3. rh positive 4. rubella immune Medications at Discharge Home Medications multivitamin no.47-iron fum 27 mg-folate no.1 1 mg-dha 300 mg capsule (PNV-DHA) 1 cap PO DAILY 06/18/21 fluoxetine 40 mg capsule (Prozac) 40 mg PO DAILY anxiety #90 caps 02/24/23 magnesium oxide 500 mg capsule 500 mg PO DAILY supplement 12/08/23 hydroxyzine pamoate 25 mg capsule (Vistaril) 25 mg PO QHS sleep #30 caps 05/08/24 ibuprofen 800 mg tablet 800 mg PO Q8H PRN pain #30 tabs 05/23/24 oxycodone-acetaminophen 5 mg-325 mg tablet (Percocet) 1 tab PO Q4H PRN pain 7 days #20 tabs 05/23/24 Hospital Course Summary of Care Provided Hospital Course: patient presented for [facility] and had an uncomplicated delivery. Postoperatively patient had return of bowel and bladder function and was ambulating well, tolerating adequate p.o., and was stable for discharge to home on postop day #2. Discharge medications naproxen and Percocet. Follow-up in office in 2 weeks for incision check in 6 weeks for visit. Routine post section diet and activity instructions. Weight / BMI Weight Weight: 224 lb 8 oz Body Mass Index (BMI) 37.3 ABG / Lab / Microbiology Data 05/24/24 05:05 D/C Instructions Discharge Diet: No restrictions Discharge Activity: May Not Drive (for 2 weeks or while taking narcotic pain medications.), May Shower and May Take a Tub Bath (in 7 days) May shower in (days): 0 May resume sexual activity in: 4-6 weeks Weight Bearing Status: Full weight bearing Call your doctor if your incision/area has: Continuous Slow Oozing, Sudden Increased Bleeding, Increased Pain/ Swelling, Increased Redness and Foul Smelling Discharge Call your doctor if you observe: Fever of 101 or Higher and Using more than 1 pad per hour Suture Line Care: Avoid Pulling/Pushing and Avoid Pinching/Bending Cleanse incision/area with: Soap & Water and Keep Dressing Clean & Dry Please Follow Up With: Lidia Wells DO When: Call [phone] to make an appointment for an incision check in 1-2 weeks. Meaningful Use Info Meaningful Use Meaningful Use Diagnoses (Choose all that apply): None applicable Ischemic Stroke Statin Dosing Therapy Reference: STATIN DOSE THERAPY REFERENCE: * Patients > 75 years receive moderate or high dose statin therapy. * Patients 75 years or YOUNGER should receive HIGH intensity statin dose unless contraindicated. You will be required to document reason for non-treatment if statin daily dose does not meet guidelines. HIGH DOSE STATIN THERAPY DAILY Atorvastatin > than or = to 40 mg Rosuvastatin > than or = to 20 mg Amlodipine + Atorvastatin > than or = to 2.5/40 mg Ezetimibe + Simvastatin 10/80 mg Simvastatin 80mg Discharge Plan Admission Admit Date/Time: 05/23/24 05:08 Primary Reason for Your Visit: section Attending Provider: Lidia Wells Primary Care Provider: RICARDO SOTELO Discharge Orders/Prescriptions Prescriptions: New ibuprofen 800 mg tablet 800 mg PO Q8H PRN (Reason: pain) Qty: 30 0RF oxycodone-acetaminophen [Percocet] 5-325 mg tablet 1 tab PO Q4H PRN (Reason: pain) 7 Days Qty: 20 0RF Rx Instructions: 1-2 tabs q 4 hrs as needed for pain Continued fluoxetine [Prozac] 40 mg capsule 40 mg PO DAILY Qty: 90 3RF hydroxyzine pamoate [Vistaril] 25 mg capsule 25 mg PO QHS Qty: 30 0RF No Action PNV-DHA 27 mg iron-1 mg -300 mg capsule 1 cap PO DAILY magnesium oxide 500 mg capsule 500 mg PO DAILY Referrals / Follow Up: RICARDO SOTELO MD [Primary Care Provider] - Disposition Disposition (needs filled in before D/C Order can be placed): Home, Self Care
[2024-05-25 08:00] VITALS: BP 113/66; PULSE 75; RESP 16; TEMP 36.5; O2SAT 97
[2024-05-25] MEDS: Fluoxetine HCl 40 MG CAPSULE PO (09:49)
== END 2024-05-25 11:30 | disposition home or self-care (01) | DRG 788 ==
PROVIDERS: Admitting Provider Obstetrics & Gynecology; PCP Family Medicine; Visit Provider Obstetrics & Gynecology
PROC: 10D00Z1 Extraction of Products of Conception, Low, Open Approach (ICD-10-PCS; CPT 59514; principal; 2024-05-23 07:00)
DX: O34.211 Maternal care for low transverse scar from previous cesarean delivery (principal); O99.214 Obesity complicating childbirth; F32.A Depression, unspecified; F41.9 Anxiety disorder, unspecified; O99.344 Other mental disorders complicating childbirth; O34.43 Maternal care for other abnormalities of cervix, third trimester; Q51.810 Arcuate uterus; Z3A.39 39 weeks gestation of pregnancy; Z37.0 Single live birth; Z79.899 Other long term (current) drug therapy
CPT/HCPCS: 59025; 59050; 85025; 85027; 86780; 86850; 86900; 86901; 90656; 99221; J7120; A4216; G0378; J2405